=== PATIENT | male | born 1950 | race Caucasian/White ===

== ENCOUNTER 2019-08-01 02:15 | Outpatient (CLI) | payer OTHER, SELFPAY ==
[2019-08-01 09:34] LABS: Calculated LDL 125 mg/dL (<100); Cholesterol 193 mg/dL (<200); HDL Cholesterol 36 mg/dL (40-60); Triglyceride 161 mg/dL (<150)
== END 2019-08-01 02:35 ==
PROVIDERS: PCP Emergency Medicine; Visit Provider Emergency Medicine
DX: E78.5 Hyperlipidemia, unspecified (principal)
CPT/HCPCS: 36415; 80061

== ENCOUNTER 2020-04-11 11:57 | Outpatient (CLI) | payer OTHER, SELFPAY ==
[2020-04-12 16:56] LABS: COVID-19 RT-PCR UVMMC Result Negative (Negative)
== END 2020-04-11 11:58 | disposition home or self-care (01) ==
LOC: LBO 11:57
PROVIDERS: PCP Emergency Medicine; Visit Provider Emergency Medicine
DX: Z20.822 Contact with and (suspected) exposure to COVID-19 (principal)
CPT/HCPCS: U0003

== ENCOUNTER 2020-04-16 03:16 | Outpatient (CLI) | payer OTHER, SELFPAY ==
[2020-04-17 13:15] LABS: COVID-19 RT-PCR UVMMC Result Negative (Negative)
== END 2020-04-16 03:17 | disposition home or self-care (01) ==
LOC: LBO 03:17
PROVIDERS: PCP Emergency Medicine; Visit Provider Emergency Medicine
DX: Z20.822 Contact with and (suspected) exposure to COVID-19 (principal)
CPT/HCPCS: U0003

== ENCOUNTER 2020-11-04 12:19 | Outpatient (REF) | payer OTHER, SELFPAY ==
[2020-11-04 16:22] LABS: Anion Gap 9.5 mmol/L (3-11); BUN 34 mg/dL (7-18); CO2 25.5 mmol/L (21.0-32.0); CREATININE 1.6 mg/dL (0.70-1.30); Chloride 103 mmol/L (98-107); Estimated GFR 43.07 (mL/min/1.73m2); Glucose 103 mg/dL (74-106); Potassium 4.6 mmol/L (3.5-5.1); Sodium 138 mmol/L (136-145)
[2020-11-04 23:17] LABS: PSA, Screening 1.1 ng/mL (0.0-4.5)
== END 2020-11-04 12:20 | disposition home or self-care (01) ==
LOC: NCHCN 12:19
PROVIDERS: PCP Emergency Medicine; Visit Provider Emergency Medicine
DX: I10 Essential (primary) hypertension (principal); Z12.5 Encounter for screening for malignant neoplasm of prostate
CPT/HCPCS: 80048; 84153

== ENCOUNTER 2020-12-03 04:28 | Outpatient (CLI) | payer OTHER, SELFPAY ==
[2020-12-03 13:02] LABS: Anion Gap 10.6 mmol/L (3-11); BUN 43 mg/dL (7-18); CO2 26.4 mmol/L (21.0-32.0); CREATININE 1.9 mg/dL (0.70-1.30); Calcium 9.2 mg/dL (8.5-10.1); Chloride 105 mmol/L (98-107); Estimated GFR 35.32 (mL/min/1.73m2); Glucose 101 mg/dL (74-106); Potassium 4.9 mmol/L (3.5-5.1); Sodium 142 mmol/L (136-145)
== END 2020-12-03 04:29 | disposition home or self-care (01) ==
LOC: LOS 04:29
PROVIDERS: PCP Emergency Medicine; Visit Provider Emergency Medicine
DX: I10 Essential (primary) hypertension (principal)
CPT/HCPCS: 36415; 80048

== ENCOUNTER 2021-01-07 02:34 | Outpatient (CLI) | payer OTHER, SELFPAY ==
[2021-01-07 13:32] LABS: Anion Gap 7.7 mmol/L (3-11); BUN 34 mg/dL (7-18); CO2 27.3 mmol/L (21.0-32.0); CREATININE 1.6 mg/dL (0.70-1.30); Chloride 104 mmol/L (98-107); Estimated GFR 43.07 (mL/min/1.73m2); Glucose 93 mg/dL (74-106); Potassium 4.7 mmol/L (3.5-5.1); Sodium 139 mmol/L (136-145)
[2021-01-07 16:15] LABS: Bilirubin Negative (Negative); Blood Negative (Negative); Clarity Clear (Clear); Glucose Negative (Negative); Ketones Negative (Negative); Leukocyte Esterase Negative (Negative); Nitrite Negative (Negative); Specific Gravity >= 1.030 (1.005-1.025); Urobilinogen 0.2 EU/dL (Up TO 0.2); pH 5.5 (5-8)
[2021-01-07 16:32] LABS: COMMENT (LAB VIEW ONLY) 185.15 mg/dL; Microalb ug/mg Crea 3.2 ug/mg Cr
== END 2021-01-07 02:35 | disposition home or self-care (01) ==
LOC: LBO 02:34
PROVIDERS: PCP Emergency Medicine; Visit Provider Emergency Medicine
DX: I10 Essential (primary) hypertension; N28.9 Disorder of kidney and ureter, unspecified; R30.0 Dysuria
CPT/HCPCS: 36415; 80048; 81003; 82043; 82570; 86140

== ENCOUNTER 2021-04-23 21:07 | Outpatient (CLI) | payer BC, SELFPAY ==
--- NOTE | 2021-04-23 15:15 | DI.RAD_ITS ---
Exam(s) XR LUMBAR SPINE COMPLETE EXAM: XR LUMBAR SPINE COMPLETE CLINICAL HISTORY: right sciatica, M54.31; lt hip pain, M25.552. TECHNIQUE: 2D digital imaging was performed. COMPARISON: No exams were available for comparison FINDINGS: Five views No evidence of fracture, listhesis, or pars defects. Preserved disc space height in the lumbar spine with the exception of mild disc space narrowing at L1-2 level. There are bridging left-sided osteop hytes at L2-3 level. Smaller right-sided osteophytes at L3-4 level. There is no scoliosis. No omin ous osseous lesions. Sacroiliac joints appear unremarkable. Minimal facet joint degenerative change s. IMPRESSION: Some degenerative changes as above. DATA REPOSITORY: RADIATION DOSE DELIVERED:
== END 2021-04-23 21:27 ==
PROVIDERS: PCP Family Medicine; Visit Provider Emergency Medicine
DX: M25.552 Pain in left hip (principal); M54.31 Sciatica, right side; M25.78 Osteophyte, vertebrae; M48.061 Spinal stenosis, lumbar region without neurogenic claudication
CPT/HCPCS: 72110

== ENCOUNTER 2021-08-27 01:08 | Outpatient (CLI) | payer BC, SELFPAY ==
--- OUTSIDE RECORDS SUMMARY | 2021-08-27 01:09 | XMS_ITS | Encounter Summary ---
:1950 [place] [address] Care Team Providers Name Role Phone Anmol Sigala DO Primary Care Provider Reason for Visit Reason Comments Skin Lesion Consultation (Routine) - Closed Specialty Diagnoses / Procedures Referred By Contact Refer red To Contact Dermatology Diagnoses EYELID LESION Anmol Sigala DO [facility] Dermatology [address] [place], [place] [address] [address] [place] [address] Fax: Referral ID Status Reason Start Date Expiration Date Visits V isits Requested Authorized [id number] Closed Consult, 07/20/2017 07/20/2018 1 [facility] Encounter Details Date Type Department Care Team Description 09/20/2017 Office Visit Dermatology at [facility] Piyush Santos MD Seborrheic keratosis; [facility] Eczema, unspecified type [address] [place] [address] [facility] [phone] RD-DERMATOLOGY [place], [place] [address] Social History Tobacco Use Types Packs/Day Years Used Date Never Smoker Smokeless Tobacco: Never Used Sex Assigned at Date Recorded Not on file documented as of this encounter Progress Notes Piyush Santos - 09/20/2017 10:00 AM EDT Images from the original note were not included. DERMATOLOGY - NEW PATIENT NOTE Date of service: 09/20/2017 Kristian Mark : 1950, 67 y.o. Chief Complaint: Chief Complaint Patient presents with ??? Skin Lesion HPI: Kristian Mark is a 67 y.o. male referred by Anmol Sigala with the following concerns: C/o a lesion on his left lower eyelid x several years, asymptomatic. States it bothers him as it is in his line of vision. 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 C/o some roughness on his hands, states he noticed they worsened when he added salt to his water as he has hard water. Relevant Skin History: - Okay to leave detailed message with results? 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 clonAZEpam (KLONOPIN) 0.5 mg tablet 0.5MG, PO, Once daily ??? atorvastatin (LIPITOR) 20 mg tablet 10mg, PO, Once daily ??? omeprazole (PRILOSEC) 20 mg capsule No current facility-administered medications for this visit. Allergies: Allergies Allergen Reactions ??? Esomeprazole Magnesium CIS - diarrhea Review of Systems: - General: Feels well. - Skin: No other skin concerns. Examination: - Constitutional: Patient was alert, well-appearing and in no noticeable distress. - Skin: A focused skin exam was performed including the face, hands Diagnosis/Skin findings/Assessment/Plan: 1. Suspect Irritant contact dermatitis; mild scale on b/l hands, most prominent on MCP and PIP. Scaly erythematous plaques - Recommend sensitive skin care: Dove fragrance free bar soap (folds/feet only), Cerave cream/Vanicream/Aveeno daily moisturizer within a few minutes of getting out of shower, lukewarm showers 2. Seborrheic keratosis vs. Verruca Vulgaris ; Left lower eyelid aprox. 0.2 cm papillomatous friablePapule. Joint decision to pursue snip removal at this time Procedure: Skin biopsy using scissors. Site: left lower eyelid Discussed procedure and expectations including risks and benefits. Verbal consent obtained. Sterile skin prep performed. Local anesthesia with 1% xylocaine, 1/100,000 epinephrine, The lesion was removed by scissors technique to the level of dermis Hemostasis obtained. There were no complications; the p atient tolerated the procedure well. The wound was dressed. Post-procedure expectations (including discomfort management), wound care andactivity restrictions were reviewed. Follow-up based on Pathology results. 3. Seborrheic keratosis: Multiple 0.4-0.6cm brown papules with waxy, stuck-on appearance. Milia-likecysts, comedone-like openings and/or fissuring on dermoscopy. - reassurance RTC: PRN The following photos were obtained with patient consent: Note initiated by CATHRYN RUDD RN. I performed the above scribed service and agree with the accuracy of the documentation in this encounter. Reviewed and signed by Piyush Santos MD Resident in Dermatology [facility] Patient seen in conjunction with staff truck loader: Louis Smyth MD Section of Dermatology [facility] Louis Smyth MD - 09/20/2017 10:00 AM EDT I directly supervised Dr. Santos during this office visit. Dr. Santos presented the history and physicalexam to me. I then saw and examined this patient with Dr. Santos. We reviewed the history and pertinent details and I confirmed the physical findings. I agree with the details of the history and physicalexam as documented in Dr. Santos's note. LOUIS SMYTH MD Staff Physician documented in this encounter Plan of Treatment Not on filedocumented as of this encounter Visit Diagnoses Diagnosis Seborrheic keratosis Other seborrheic keratosis Eczema, unspecified type documented in this encounter Care Teams Leasing Representative Relationship Specialty Start Date End Date Anmol Sigala DO PCP - General Family Medicine 07/20/17 [address] [place] [address] documented as of this encounter
--- OUTSIDE RECORDS SUMMARY | 2021-08-27 01:09 | XMS_ITS | Encounter Summary ---
:1950 Author Organization [facility] Address [address] [place] [address] Care Team Providers Name Role Phone Unavailable Primary Care Provider Unavailable Encounter Details Date Type Department Care Team Description 04/11/2020 Lab Requisition [facility] Outr Resulting Lab, Pathology & Laboratory Provider [facility] [address] [place] [address] Social History Tobacco Use Types Packs/Day Years Used Date Never Assessed Sex Assigned at Date Recorded Not on file documented as of this encounter Plan of Treatment Not on filedocumented as of this encounter Procedures Procedure Name Priority Date/Time Associated Diagnosis Comme nts COVID-19 TEST [facility] Today 04/11/2020 12:55 LAB PCR EST COVID-19 TESTING Routine 04/11/2020 12:55 Results for this EST procedure are i n the results section. documented in this encounter Results COVID-19 TEST [facility] LAB PCR (04/11/2020 12:55 EST) Specimen Swab - Entire nasopharynx (body structur e) Performing Organization Address City/State/ZIP Code Phon e Number [facility] [address] [place] [address] SERVICES COVID-19 TESTING (04/11/2020 12:55 EST) COVID-19 rt-PCR Negative Negative [facility] MEDICAL Result Comment: [facility] This test has not been FDA c leared or approved. This test has been authorized by FDA under an EUA for use by authorized laboratories. This test has been authorized only for detection of nucleic acid fro SERVICES m 2019-nCoV, not for any oth er viruses or pathogens. This test is only authorized for the duration of the declaration that circumstances exist justifying the authorization of emergency use of in vitro d iagnostic tests for detectio n and/or diagnosis of 2019-nCoV under section 564(b)(1) of Act, 21 U.S.C ?? 360bbb-3(b) (1), unless the authorization is terminated or revoked sooner. Negative results do not prec lude 2019-nCoV infection and should not be used as the sole basis for treatment or other patient management decisions. Negative results must be combined with clinical observa tions, patient history, and epidemiological informatio n. This test was developed and its performance characteristics determined by [facility]. It has not been cleared or approved by the US Food and Drug Administration. FDA does not require this test to go through premarket FDA review. This t est is used for clinical purposes. It should not be regarded as investigational or for research. This laboratory is certified under the Clinical Laboratory Improvement Amendm ents (CLIA) as qualified to perform high complexity clinical laboratory testing. This test is based on the CD C COVID-19 Emergency Use Authorization (EUA) assay, with minor modification as defined by the FDA Performed on the [employer] Te[employer] 7 Flex RT-PCR System. Performing Lab [facility] Lab [facility] SERVICES Specimen Swab Performing Organization Address City/State/ZIP Code Phon e Number [facility] [address] [place] [address] SERVICES documented in this encounter Visit Diagnoses Not on filedocumented in this encounter
--- OUTSIDE RECORDS SUMMARY | 2021-08-27 01:09 | XMS_ITS | Clinical Summary ---
:1950 Author Organization [facility] [place] [address] Care Team Providers Name Role Phone JovonAnmol simon Primary Care Provider Allergies Active Allergy Reactions Severity Noted Date Comments Esomeprazole Magnesium Medium CIS - diarrhea Medications Medication Sig Dispensed Refills Start Date End Date Status clonAZEpam (KLONOPIN) 0.5MG, PO, Once 0 03/29/2006 Active 0.5 mg tablet daily atorvastatin (LIPITOR) 10mg, PO, Once 0 03/29/2006 Active 20 mg tablet daily omeprazole (PRILOSEC) 20 0 03/29/2006 Active mg capsule Active Problems No known active problems Encounters Date Type Specialty Care Team Description 08/11/2021 Telephone Nephrology Gris Vanessa 08/05/2021 Orders Only Nephrology Pierre Retana MD VIKY (acute ki dney injury); Stage 3b chroni c kidney disease from Last 3 Months Social History Tobacco Use Types Packs/Day Years Used Date Never Smoker Smokeless Tobacco: Never Used Sex Assigned at Date Recorded Not on file Plan of Treatment Health Maintenance Due Date Last Done Comments Covid-19 Vaccine (#1) 1956 Tdap adult 1970 Tetanus vaccine 1970 Colonoscopy 1996 Zoster vaccine (1 of 2) 2001 Advance Directive 2006 Pneumoccocal Vaccine: 65+ (1 - PCV) 2016 Influenza (Flu) vaccine (1 of 1 - Influenza standard 10/08/2021 series) Hepatitis C Screening Completed 04/22/2021 Insurance Payer Benefit Plan / Subscriber ID Effective Dates Phone Addre ss Type Group BLUE CROSS B[employer]R. [facility] [id number] 2021-Present [address] [facility] [address] [address] (Home) [place] [phone] [place] [phone] (Work) Care Teams Lathmaker Relationship Specialty Start Date End Date Anmol Sigala DO PCP - General Family Medicine 07/20/[address] [place], [place] [address]
--- OUTSIDE RECORDS SUMMARY | 2021-08-27 01:09 | XMS_ITS | Encounter Summary ---
:1950 Author Organization [facility] [place] [address] Care Team Providers Name Role Phone Anmol Sigala DO Primary Care Provider Encounter Details Date Type Department Care Team Description 05/05/2021 Laboratory Appointment Lab 3L [facility] Stage 3b chronic kidney disease; [facility] VIKY (acute kidney injury) [place] [address] Social History Tobacco Use Types Packs/Day Years Used Date Never Smoker Smokeless Tobacco: Never Used Sex Assigned at Date Recorded Not on file documented as of this encounter Plan of Treatment Not on filedocumented as of this encounter Procedures Procedure Name Priority Date/Time Associated Diagnosis Comme [facility] VENIPUNCTURE Routine 05/05/2021 1:15 PM Stage 3b chronic Re sults for this EDT kidney disease procedure are in VIKY (acute kidney the result s injury) section. documented in this encounter Results (ABNORMAL) Basic Metabolic Panel (non-fasting) (05/05/2021 1:15 PM EDT) P athologist Signature Glucose Lvl 107 65 - 199 [facility] mg/dL [facility] Comment: Diabetes: >=200 mg/dL plus symp toms BUN 34 (H) 10 - 20 mg/dL [facility] Creatinine 1.58 (H) 0.80 - 1.50 mg/dL [facility] Sodium 136 135 - 145 mmol/L [facility] Potassium 5.1 (H) 3.5 - 5.0 mmol/L [facility] Comment: Please note: ??Patients with WBC >100,00 0 may have falsely elevated Potassium levels. ??For accurate Potassium quantif ication in these patients send serum separator tube (gold top) for subsequent determinations. ??Contact the Clinical Chemistry Laboratory if there are any qu estions. Chloride 101 98 - 107 mmol/L [facility] CO2 21 (L) 22 - 31 mmol/L [facility] Anion Gap 14 5 - 15 mmol/L [facility] Calcium 10.2 8.5 - 10.5 mg/dL [facility] Estimated GFR 44 (L) >=60 mL/min/1.73 m?? [facility] Comment: This patient? s estimated glomerular filtration rate (eGFR) is between 44 mL/min/1.73 m2 (patients with less muscl e mass per kg body weight) and 51 mL/min/1.73 m2 (patients with more muscl e mass per kg body weight) as determined by the CKD-EPI equation. Asse ssment of eGFR is not appropriate when creatinine concentrations are rapidly ch anging. For clinical decisions where creatinine clearance will affect therapy , a 24-hour urine creatinine clearance may be advised. Assignment of CKD stage 1 - 5 for patien ts with an eGFR near the transition point between stages may be based on cli nical assessment of muscle mass and symptoms in addition to eGFR. Specimen Anatomical Collection Method Collection Time Receive d Time (Source) Location / / Volume Laterality Blood 05/05/2021 1:15 PM 2 1:27 EDT PM EDT Resulting Agency Comment Spec In Lab Pierre Retana MD CHEMISTRY ORDERABLES Performing Organization Address City/State/[place] [address] documented in this encounter Visit Diagnoses Diagnosis Stage 3b chronic kidney disease VIKY (acute kidney injury) Acute kidney failure, unspecified documented in this encounter Care Teams Guinea Pig Breeder Relationship Specialty Start Date End Date Anmol Sigala DO PCP - General Family Medicine 07/20/[address] [place] [address] documented as of this encounter
--- OUTSIDE RECORDS SUMMARY | 2021-08-27 01:09 | XMS_ITS | Encounter Summary ---
:1950 Author Organization [facility] Address [address] [place] [address] Care Team Providers Name Role Phone Unavailable Primary Care Provider Unavailable Encounter Details Date Type Department Care Team Description 04/16/2020 Lab Requisition [facility] Outr Resulting Lab, Pathology & Laboratory Provider [facility] [address] [place] [address] Social History Tobacco Use Types Packs/Day Years Used Date Never Assessed Sex Assigned at Date Recorded Not on file documented as of this encounter Plan of Treatment Not on filedocumented as of this encounter Procedures Procedure Name Priority Date/Time Associated Diagnosis Comme nts [facility] Today 04/16/2020 8:46 EST LAB PCR COVID-19 TESTING Routine 04/16/2020 8:46 EST Resu lts for this procedure are i n the results section. documented in this encounter Results COVID-19 TEST [facility] LAB PCR (04/16/2020 8:46 EST) Specimen Swab - Entire nasopharynx (body structur e) Performing Organization Address City/State/ZIP Code Phon e Number [facility] [address] [place] [address] SERVICES COVID-19 TESTING (04/16/2020 8:46 EST) COVID-19 rt-PCR Negative Negative [facility] Result Comment: [facility] This [...] developed and its performance characteristics determined by [facility]. It has not been cleared [...] defined by the FDA Performed on the [employer] 7 Flex RT-PCR System. Performing Lab [facility] Lab [facility] SERVICES Specimen Swab Performing Organization Address City/State/ZIP Code Phon e Number [facility] [address] [place] [address] SERVICES documented in this encounter Visit Diagnoses Not on filedocumented in this encounter
--- OUTSIDE RECORDS SUMMARY | 2021-08-27 01:09 | XMS_ITS | Encounter Summary ---
:1950 Author Organization [facility] [place] [address] Care Team Providers Name Role Phone Anmol Sigala DO Primary Care Provider Encounter Details Date Type Department Care Team Description 01/27/2021 Ancillary Procedure Radiology Library at Anmol Pollock DO [facility] [address] [phone] (Wo rk) [phone] Social History Tobacco Use Types Packs/Day Years Used Date Never Smoker Smokeless Tobacco: Never Used Sex Assigned at Date Recorded Not on file documented as of this encounter Plan of Treatment Not on filedocumented as of this encounter Procedures Procedure Name Priority Date/Time Associated Comments Diagnosis FILM LIBRARY STORAGE Routine 01/27/2021 12:00 AM Results for this ONLY ULTRASOUND EST procedure ar e in STUDY the results section. documented in this encounter Results Film Library- Storage Only Ultrasound Study (01/27/2021 12:00 AM EST) Specimen (Source) Anatomical Location Collection Method / Collectio n Time Received Time / Laterality Volume Narrative MARU - 01/29/2021 4:23 PM EST This exam is auto-finalizing. It's purpo se is for storage only. Anmol Sigala DO [facility] FILM LIBRARY ORDERABLES Performing Organization Address City/State/ZIP Code Phon e Number [place], [place] documented in this encounter Visit Diagnoses Not on filedocumented in this encounter Care Teams Construction Job Titles Relationship Specialty Start Date End Date Anmol Sigala DO PCP - General Family Medicine 07/20/[address] [place] [address] documented as of this encounter
--- OUTSIDE RECORDS SUMMARY | 2021-08-27 01:09 | XMS_ITS | Encounter Summary ---
:1950 Author Organization [facility] [place] [address] Care Team Providers Name Role Phone Anmol Sigala DO Primary Care Provider Encounter Details Date Type Department Care Team Description 08/11/2021 Telephone Nephrology Hypertens ion at [facility] [place] [address] Social History Tobacco Use Types Packs/Day Years Used Date Never Smoker Smokeless Tobacco: Never Used Sex Assigned at Date Recorded Not on file documented as of this encounter Miscellaneous Notes Telephone Encounter - Gris Vanessa - 08/11/2021 11:40 AM EDT L/M for pt to call and agustina. Apt. With Dr. Retana as soon as possible. documented in this encounter Plan of Treatment Not on filedocumented as of this encounter Visit Diagnoses Not on filedocumented in this encounter Care Teams Instructor Knitting Relationship Specialty Start Date End Date Anmol Sigala DO PCP - General Family Medicine 07/20/[address] [place], [place] [address] documented as of this encounter
--- OUTSIDE RECORDS SUMMARY | 2021-08-27 01:09 | XMS_ITS | Encounter Summary ---
:1950 Author Organization [facility] Address [address] [place] [address] Care Team Providers Name Role Phone Unavailable Primary Care Provider Unavailable Encounter Details Date Type Department Care Team Description 11/04/2020 Lab Requisition [facility] Outr Resulting Lab, Pathology & Laboratory Provider [facility] [address] [place] [address] Social History Tobacco Use Types Packs/Day Years Used Date Never Assessed Sex Assigned at Date Recorded Not on file documented as of this encounter Plan of Treatment Not on filedocumented as of this encounter Procedures Procedure Name Priority Date/Time Associated Comments Diagnosis PSA TOTAL, Routine 11/04/2020 9:25 EDT Results for this DIAGNOSTIC procedure are i n the results section. documented in this encounter Results PSA TOTAL, DIAGNOSTIC (11/04/2020 9:25 EDT) Pathologist Sig nature PSA 1.1 0.0 - 4.5 ng/mL [facility] Specimen Blood - Venous blood (substance) Narrative [facility] - 11/04/2020 23:06 EDT NOTE: Serum PSA concentration should not be in terpreted as absolute evidence for the presence or absence of malignant disease. Assayed on Siemens ADVIA Centaur XPT usi ng chemiluminescent technology.??Values obtained by using different assay methods cannot be used interchangeably. Performing Organization Address City/State/ZIP Code Phon e Number [facility] [address] [place] [address] SERVICES documented in this encounter Visit Diagnoses Not on filedocumented in this encounter
--- OUTSIDE RECORDS SUMMARY | 2021-08-27 01:09 | XMS_ITS | Encounter Summary ---
:1950 Author Organization [facility] [place] [address] Care Team Providers Name Role Phone Anmol Sigala DO Primary Care Provider Encounter Details Date Type Department Care Team Description 08/05/2021 Orders Only Nephrology Hypertension Jamee Retana MD VIKY (acute kidney injury); at [facility] Stage 3b chronic kidney dise [facility] [address] [place] [address] [place] [address] [phone] Social History Tobacco Use Types Packs/Day Years Used Date Never Smoker Smokeless Tobacco: Never Used Sex Assigned at Date Recorded Not on file documented as of this encounter Plan of Treatment Scheduled Orders Name Type Priority Associated Diagnoses Order S chedule Basic Metabolic Panel Lab Routine VIKY (acute kidney injury) Expected: 08/05/2021 (non-fasting) Stage 3b chronic kidney (Ap proximate), disease Expires: 2022 Albumin Level Lab Routine VIKY (acute kidne y injury) Expected: 08/05/2021 Stage 3b chronic kidney (Rosy roximate), disease Expires: 2022 CBC (with Diff) Lab Routine VIKY (acute kidne y injury) Expected: 08/05/2021 Stage 3b chronic kidney (Rosy roximate), disease Expires: 2022 documented as of this encounter Visit Diagnoses Diagnosis VIKY (acute kidney injury) Acute kidney failure, unspecified Stage 3b chronic kidney disease documented in this encounter Care Teams Carpet Repairer Relationship Specialty Start Date End Date Anmol Sigala DO PCP - General Family Medicine 07/20/[address] [place] [address] [address] [place] [address] documented as of this encounter
--- OUTSIDE RECORDS SUMMARY | 2021-08-27 01:09 | XMS_ITS | Encounter Summary ---
:1950 Author Organization [facility] [address] Care Team Providers Name Role Phone Anmol Sigala DO Primary Care Provider Reason for Visit Consultation (Routine) - Authorized Specialty Diagnoses / Procedures Referred By Contact Refer red To Contact Nephrology Diagnoses Disorder of kidney and ureter, unspecified Anmol Sigala DO [facility] Nephrology [address]m [address] [place] [facility] [address] [place] [id number] [place], [place] [address] Referral ID Status Reason Start Expiration Visits Visits Date Date Requested Authorized [id number] Authorized Consult, 01/29/2022 6 6 Test & Treat 1 [facility] PCP Updated and/or Approved Encounter Details Date Type Department Care Team Description 04/22/2021 Office Visit Nephrology Hypertension Jamee Retana MD Stage 3b chronic kidney disease; at [facility] (acute kidney injury) [facility] [address] [place] [address] [place] [address] [phone] Social History Tobacco Use Types Packs/Day Years Used Date Never Smoker Smokeless Tobacco: Never Used Sex Assigned at Date Recorded Not on file documented as of this encounter Progress Notes Pierre Retana MD - 04/22/2021 1:00 PM EDT HYPERTENSION/ NEPHROLOGY CONSULT NOTE PATIENT: Kristian Mark : 1950 REASON FOR CONSULTATION: Consulted for renal insufficiency HPI: 71 y.o. male with PMHx significant for Hypertension, hyperlipidemia, diastases recti, anxiety, referred by his primary care provider for renal insufficiency. His creatinine on 12/03/20 1.9 01/07/2021 was 1.6. Negative protein on urinalysis 01/07/2021 USG 01/27/21- R 11 cm L 10 cm no hydronephrosis. His medications include: Lisinopril 20 mg daily Hydrochlorothiazide 25 mg Amlodipine 5 mg daily Has been using NSAIDS 2 tabs bid for about a month for pain No other complaints including urinary comlaints no diarrhea, no constipation, no nocturia, no dysuria, no decreased stream. No fever chills, had a rash upper left thigh which resolved with topical steroid. PMHx Hypertension, Hyperlipidemia, Diastases recti, Anxiety, Family history Mother at 94 Father at 78 . He had diabetes heart disease hyperlipidemia Social history Never smoker Rarely drinks alcohol Review of system- A 10 point review of system including cardiovascular, neurological, pulmonary, gastrointestinal was done, everything was negative except for what was mentioned above. Social History Socioeconomic History ??? Marital status: Spouse name: Not on file ??? Number of children: Not on file ??? Years of education: Not on file ??? Highest education level: Not on file Occupational History ??? Not on file Tobacco Use ??? Smoking status: Never Smoker ??? Smokeless tobacco: Never Used Substance and Sexual Activity ??? Alcohol use: Not on file ??? Drug use: Not on file ??? Sexual activity: Not on file Other Topics Concern ??? Not on file Social History Narrative ??? Not on file Social Determinants of Health Financial Resource Strain: Not on file Food Insecurity: Not on file Transportation Needs: Not on file Physical Activity: Not on file Housing Stability: Not on file Outpatient medications: Current Outpatient Medications on File Prior to Visit Medication Sig Dispense Refill ??? clonAZEpam (KLONOPIN) 0.5 mg tablet 0.5MG, PO, Once daily ??? atorvastatin (LIPITOR) 20 mg tablet 10mg, PO, Once daily ??? omeprazole (PRILOSEC) 20 mg capsule No current facility-administered medications on file prior to visit. MEDICATIONS: Allergies Allergen Reactions ??? Esomeprazole Magnesium CIS - diarrhea PHYSICAL EXAM: Last value Range last 24 hrs Temperature Temp: -- Heart Rate Heart Rate: -- Blood Pressure BP: ()/() Respiratory Rate Resp: -- SpO2 SpO2: -- BP 125/67 HR 80/' Patient is awake alert did not seem to be in acute distress No jaundice oral mucosa moist Neck- supple trachea central Chest- bilateral air entry present clear to auscultation no wheeze no crepitation CVS-S1-S2 present, no murmur regurgitation gallops. Abdomen-nontender nondistended, bowel sounds present. Extremities-peripheral pulses present, no edema Neuro-patient is awake alert, moving all 4 limbs, motor examination is grossly normal. no asterixis. STUDIES: Labs: CBC: Recent Labs 04/22/21 1439 WBC 4.9 HGB 12.7* PLATELET 258 Chemistry: Recent Labs 04/22/21 1439 NA 136 K 4.4 CL 103 CO2 21* BUN 40* CREATININE 1.92* GLUCOSE 121 Recent Labs 04/22/21 1439 CALCIUM 9.7 LFT's: Recent Labs 04/22/21 1439 ALBUMIN 4.5 Prot/Cre Ratio Date Value Ref Range Status 04/22/2021 0.1 ratio Final Lab Results Component Value Date TPROTEINPEP 7.1 04/22/2021 Lab Results Component Value Date MICROALBUR 19.5 04/22/2021 No results found for: HA1C Lab Results Component Value Date PTH 29 04/22/2021 CALCIUM 9.7 04/22/2021 25-OH Vit D Total (ng/mL) Date Value Status 04/22/2021 20 (L) Final IMPRESSION/ RECOMMENDATIONS: 71 y.o. male with PMHx significant for Hypertension, hyperlipidemia, diastases recti, anxiety, referred by his primary care provider for renal insufficiency. 12/03/20 1.9 01/07/2021 was 1.6. Negative protein on urinalysis 01/07/2021 USG 01/27/21- R 11 cm L 10 cm no hydronephrosis. Pocus- pre void 30 ml. Urine - has RTE cell casts and multiple RTE cells C3,C4 CRP, Hep C neg. UPC 0. No albuminuria # VIKY on CKD- - CKD baseline levels not fully established. - RTE cast shows VIKY / ATN most probably from NSAIDs - Will re evaluate urine and his blood in 2 weeks. # Electorlytes Sodium normal Potassium normal #Acid Base - not in acidosis . # BMM Calcium normal 25 OH Vit D 20 PTH 29 #Hemodynamics -blood pressures #Hemoglobin - At target for his level of CKD Plan/Recommendations: We will re evaluate his PTH and Vit D next visit, since his PTH is well within normal limits I am hesitant to recommend supplementation at this time. Will repeat urine evaluation in the nephrology lab personally and BMP in 2 weeks and determine the need for kidney biopsy at that time. Avoid nephrotoxic medications RTC 6 weeks. Please renally dose all meds. Thanks for letting us participate in the care of this patient. A total of 60 minutes was spent for reviewing chart, [id number] encounter, ordering labs/medication and coordinating care. CC-DO Pierre Vásquez MD 04/22/2021 Hypertension-Nephrology [facility] documented in this encounter Plan of Treatment Not on filedocumented as of this encounter Procedures Procedure Name Priority Date/Time Associated Comments Diagnosis HC PROTEIN, Routine 04/22/2021 2:56 Stage 3b chronic Results for this QUANTITATIVE, URINE PM EDT kidney disease proced ure are in the results section. HC MICROALBUMIN, URINE Routine 04/22/2021 2:56 Stage 3b chroni c Results for this PM EDT kidney disease procedure are in the results section. HC RANDOM URINE PEP Routine 04/22/2021 2:56 Stage 3b chronic R esults for this PM EDT kidney disease procedure are in the results section. HC IMMUNOGLOBULIN FREE Routine 04/22/2021 2:39 Stage 3b chroni c Results for this LIGHT CHAINS, SERUM PM EDT kidney disease proced ure are in the results section. HC C-REACTIVE PROTEIN Routine 04/22/2021 2:39 Stage 3b chronic Results for this PM EDT kidney disease procedure are in the results section. HC PARATHYROID Routine 04/22/2021 2:39 Stage 3b chronic Result s for this HORMONE(PTH INTACT PM EDT kidney disease procedu re are in the results section. HEMOGRAM Routine 04/22/2021 2:39 Stage 3b chronic Results for this PM EDT kidney disease procedure are in the results section. DIFFERENTIAL, AUTOMATED Routine 04/22/2021 2:39 Stage 3b chron ic Results for this PM EDT kidney disease procedure are in the results section. HC HEPATITIS C ANTIBODY Routine 04/22/2021 2:39 Stage 3b chron ic Results for this PM EDT kidney disease procedure are in the results section. HC VITAMIN D TOTAL-25 Routine 04/22/2021 2:39 Stage 3b chronic Results for this HYDROXY PM EDT kidney disease procedure are in the results section. HC CBC,PLT & AUTO DIFF Routine 04/22/2021 2:39 Stage 3b chroni c PM EDT kidney disease HC COMPLEMENT,C3 SERUM Routine 04/22/2021 2:39 Stage 3b chroni c Results for this PM EDT kidney disease procedure are in the results section. 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 HC SERUM PROT. Routine 04/22/2021 2:39 Stage 3b chronic Result s for this ELECTROPHORESIS PM EDT kidney disease procedure are in the results section. HC ALBUMIN, SERUM Routine 04/22/2021 2:39 Stage 3b chronic Res ults for this PM EDT kidney disease procedure are in the results section. HC VENIPUNCTURE Routine 04/22/2021 2:39 Stage 3b chronic Resul ts for this PM EDT kidney disease procedure are in the results section. documented in this encounter Results (ABNORMAL) Basic Metabolic Panel (non-fasting) (05/05/2021 1:15 PM EDT) P athologist Signature Glucose Lvl 107 65 - 199 [facility] mg/dL [facility] Comment: Diabetes: >=200 mg/dL plus symp toms BUN 34 (H) 10 - 20 mg/dL [facility] Creatinine 1.58 (H) 0.80 - 1.50 mg/dL [facility] Sodium 136 135 - 145 mmol/L [facility] Potassium 5.1 (H) 3.5 - 5.0 mmol/L [facility] Comment: Please note: ??Patients with WBC >100,00 0 may have falsely elevated Potassium levels. ??For accurate Potassium quantif ication in these patients send serum separator tube (gold top) for subsequent determinations. ??Contact the Clinical Chemistry Laboratory if there are any qu estions. Chloride 101 98 - 107 mmol/L [facility] CO2 21 (L) 22 - 31 mmol/L [facility] Anion Gap 14 5 - 15 mmol/L [facility] Calcium 10.2 8.5 - 10.5 mg/dL [facility] Estimated GFR 44 (L) >=60 mL/min/1.73 m?? [facility] Comment: This patient? s estimated [...] Organization Address City/State/[place] [address] Protein Electrophoresis, urine, random (04/22/2021 2:56 PM EDT) [facility] Method Time Signature U Protein Ran 8 0 - 12 [facility] mg/dL [facility] U Albumin 56 % total [facility] U Globulin 44 % total [facility] U M Band None [facility] LABORATORY U PEP See Note [facility] LABORATORY Comment: There is no evidence of clonal free ligh t chains in this patient's urine sample. Specimen Anatomical Collection Method Collection Time Receive d Time (Source) Location / / Volume Laterality Urine 04/22/2021 2:56 PM 2 3:08 EDT PM EDT Resulting Agency Comment Spec In Lab Pierre Retana MD URINE ORDERABLES Performing Organization Address City/[facility]/[place] [address] U Albumin/Cre Ratio (04/22/2021 2:56 PM EDT) [facility] Method Time Signature Alb/Cr Ratio, Not Calculated 0 - 29 [facility] Random mcg/mg Cr [facility] Comment: Reference Ranges: <30 mcg/mg: Normal 30-300 mcg/mg: Moderately increased albu minuria.* >300 mcg/mg: Severely increased albuminu aditya. * ACEI or ARB recommended if diabetic; s uggested if BP>130/80 without diabetes ACEI or ARB strongly recommended if di abetic; recommended if BP>130/80 without diabetes Two of three specimens collected within a 3 to 6 month period should be abnormal before considering a patient to have albuminuria. Transient causes: exercise, fever, infection, CHF, marked hyperglycemia or hypertension. Persistent albuminuria indicates CKD and is an independent risk factor for ASCVD. ADA Standards of Medical Care in Diabete s-2016; KDIGO: Kidney International Supplements (2012) 2, 357? 362 U Albumin Conc, Random 19.5 mg/L [facility] U Creatinine 110 mg/dL [facility] Specimen Anatomical Collection Method Collection Time Receive d Time (Source) Location / / Volume Laterality Urine 04/22/2021 2:56 PM 2 3:08 EDT PM EDT Resulting Agency Comment Spec In Lab Pierre Retana MD URINE ORDERABLES Performing Organization Address City/[facility]/[place] [address] Protein/Creatinine Ratio, urine (04/22/2021 2:56 PM EDT) athologist Signature U Creatinine 110 mg/dL [facility] U Protein Ran 8 0 - 12 [facility] mg/dL [facility] Prot/Cre Ratio 0.1 ratio [facility] Specimen Anatomical Collection Method Collection Time Receive d Time (Source) Location / / Volume Laterality Urine 04/22/2021 2:56 PM 2 3:08 EDT PM EDT Resulting Agency Comment Spec In Lab Pierre Retana MD URINE ORDERABLES Performing Organization Address City/State/[place] [address] Differential, Automated (04/22/2021 2:39 PM EDT) athologist Signature Neutrophils % 46.9 % [facility] Neutr Abs (ANC) 2.30 1.70 - [facility] 6.10 [facility] x10(3)/[facility] LABORATORY Lymphocytes % 37.7 % [facility] Lymphocytes Abs 1.8 0.9 - 3.2 [facility] x10(3)/[facility] LABORATORY Monocytes % 12.6 % [facility] Monocyte Abs 0.6 0.3 - 0.9 [facility] x10(3)/[facility] LABORATORY Eosinophils % 2.0 % [facility] Eosinophils Abs 0.1 0.0 - 0.4 [facility] x10(3)/[facility] LABORATORY Basophils % 0.6 % [facility] Basophils Abs 0.0 0.0 - 0.1 [facility] x10(3)/[facility] LABORATORY Immature Gran % 0.20 % [facility] Comment: Immature granulocytes(IG's)percentage an d absolute count will include metamyelocytes, myelocytes, and promyelo cytes. Blood smears from CBCs yielding IG's will be scanned manually for concor dance. If this scan disagrees with the automated IG or if promyelocytes are not ed, a manual differential will be performed. Anna Gran Abs 0.01 0.00 - 0.04 x10(3)/[facility] MAR Y [facility] LABORATORY Specimen Anatomical Collection Method Collection Time Receive d Time (Source) Location / / Volume Laterality Blood 04/22/2021 2:39 PM 2 2:58 EDT PM EDT Resulting Agency Comment Spec In Lab Pierre Retana MD HEMATOLOGY ORDERABLES Performing Organization Address City/State/[place] [address] (ABNORMAL) Hemogram (04/22/2021 2:39 PM EDT) Analysis Performed At Patho logist Time Signature WBC 4.9 4.0 - 9.5 [facility] x10(3)/[facility] LABORATORY RBC 3.91 (L) 4.58 - [facility] 5.54 [facility] x10(6)/[facility] LABORATORY Hemoglobin 12.7 (L) 13.7 - [facility] g/dL [facility] Hematocrit 34.6 (L) 40.5 - [facility] 48.5 % [facility] MCV 88.5 82.9 - [facility] 93.1 [facility] LABORATORY MCH 32.5 (H) 27.5 - [facility] 32.1 pg [facility] MCHC 36.7 (H) 32.0 - [facility] 35.7 g/dL [facility] Platelets 258 145 - 357 [facility] x10(3)/[facility] LABORATORY RDWSD 40.6 36.0 - [facility] 45.0 [facility] LABORATORY RDWCV 12.5 11.4 - [facility] 13.8 % [facility] MPV 9.2 7.6 - 12.9 [facility] LABORATORY nRBC % Auto 0.0 % [facility] nRBC Abs Auto 0.000 0.000 - [facility] 0.000 [facility] x10(3)/[facility] LABORATORY Specimen Anatomical Collection Method Collection Time Receive d Time (Source) Location / / Volume Laterality Blood 04/22/2021 2:39 PM 2 2:58 EDT PM EDT Resulting Agency Comment Spec In Lab Pierre Retana MD HEMATOLOGY ORDERABLES Performing Organization Address City/[facility]/ZIP Code Phon e Number [address] C4 Complement (04/22/2021 2:39 PM EDT) athologist Signature C4 Complement 26 10 - 40 [facility] mg/dL [facility] Specimen Anatomical Collection Method Collection Time Receive d Time (Source) Location / / Volume Laterality Blood 04/22/2021 2:39 PM 2 2:58 EDT PM EDT Resulting Agency Comment Spec In Lab Pierre Retana MD CHEMISTRY ORDERABLES Performing Organization Address City/[facility]/ZIP Code Phon e Number [address] C3 Complement (04/22/2021 2:39 PM EDT) athologist Signature C3 Complement 143 90 - 180 [facility] mg/dL [facility] Specimen Anatomical Collection Method Collection Time Receive d Time (Source) Location / / Volume Laterality Blood 04/22/2021 2:39 PM 2 2:58 EDT PM EDT Resulting Agency Comment Spec In Lab Pierre Retana MD CHEMISTRY ORDERABLES Performing Organization Address City/[facility]/[place] [address] CRP, acute inflammation (04/22/2021 2:39 PM EDT) athologist Signature CRP <3.0 <=4.9 mg/L [facility] Specimen Anatomical Collection Method Collection Time Receive d Time (Source) Location / / Volume Laterality Blood 04/22/2021 2:39 PM 2 2:58 EDT PM EDT Resulting Agency Comment Spec In Lab Pierre Retana MD CHEMISTRY ORDERABLES Performing Organization Address City/[facility]/ZIP [facility] [place] [address] (ABNORMAL) Vitamin D, 25-Hydroxy (04/22/2021 2:39 PM EDT) [facility] Method Time Signature 25-OH Vit D 20 (L) 21 - 100 [facility] Total ng/mL [facility] 25-OH Vit D Deficient [facility] LABORATORY Specimen Anatomical Collection Method Collection Time Receive d Time (Source) Location / / Volume Laterality Blood 04/22/2021 2:39 PM 2 2:58 EDT PM EDT Resulting Agency Comment Spec In Lab Pierre Retana MD CHEMISTRY ORDERABLES Performing Organization Address City/[facility]/ZIP Code Phon e Number [address] Protein Electrophoresis, serum (04/22/2021 2:39 PM EDT) [facility] Method Time Signature Total Prot 7.1 6.1 - 8.0 YASMINE Elec g/dL [facility] LABORATORY Albumin Elect 4.80 3.60 - 6.00 YASMINE g/dL [facility] Alpha1-Globul 0.16 0.10 - 0.30 YASMINE in g/dL [facility] LAB[facility] Alpha2-Globul 0.75 0.40 - 0.90 YASMINE in g/dL [facility]ORY Beta Globulin 0.73 0.50 - 1.00 [place]INE g/dL [facility] Gamma 0.67 0.50 - 1.30 Y[place]INE Globulin g/dL [facility] LABORATORY M1 Band None None YASMINE Detected Detected [facility]OR[facility]ORY Specimen Anatomical Collection Method Collection Time Receive d Time (Source) Location / / Volume Laterality Blood 04/22/2021 2:39 PM 2 2:58 EDT PM EDT Resulting Agency Comment Spec In Lab Pierre Retana MD CHEMISTRY ORDERABLES Performing Organization Address City/[facility]/ZIP Code Phon e Number [address] (ABNORMAL) Free Light Chains, Serum (04/22/2021 2:39 PM EDT) Analysis Performed At [facility] logist Time Signature Ray Free 3.50 (H) 0.72 - [facility] MARTHA Light Chain 2.75 mg/dL [facility] Lambda Free 2.24 (H) 0.57 - [facility] Light Chain 2.15 mg/dL [facility] Ray Lambda 1.5625 0.4000 - [facility] FLC Ratio 2.5800 [facility] Specimen Anatomical Collection Method Collection Time Receive d Time (Source) Location / / Volume Laterality Blood 04/22/2021 2:39 PM 2 2:58 EDT PM EDT Resulting Agency Comment Spec In Lab Pierre Retana MD CHEMISTRY ORDERABLES Performing Organization Address City/[facility]/[place] [address] Hepatitis C Antibody (04/22/2021 2:39 PM EDT) Analysis Performed At Patho logist Time Signature Hepatitis C Ab Negative Negative [facility] Specimen Anatomical Collection Method Collection Time Receive d Time (Source) Location / / Volume Laterality Blood 04/22/2021 2:39 PM 2 2:58 EDT PM EDT Resulting Agency Comment Spec In Lab Pierre Retana MD IMMUNOLOGY ORDERABLES Performing Organization Address City/[facility]/[place] [address] PTH (04/22/2021 2:39 PM EDT) P athologist Signature PTH 29 15 - 65 [facility] pg/mL [facility] Specimen Anatomical Collection Method Collection Time Receive d Time (Source) Location / / Volume Laterality Blood 04/22/2021 2:39 PM 2 2:58 EDT PM EDT Resulting Agency Comment Spec In Lab Pierre Retana MD CHEMISTRY ORDERABLES Performing Organization Address City/[facility]/[place] [address] Albumin Level (04/22/2021 2:39 PM EDT) P athologist Signature Albumin 4.5 3.2 - 5.2 YASMINE MARTHA g/dL [facility] Specimen Anatomical Collection Method Collection Time Receive d Time (Source) Location / / Volume Laterality Blood 04/22/2021 2:39 PM 2 2:58 EDT PM EDT Resulting Agency Comment Spec In Lab Pierre Retana MD CHEMISTRY ORDERABLES Performing Organization Address City/State/[place] [address] (ABNORMAL) Basic Metabolic Panel (non-fasting) (04/22/2021 2:39 PM EDT) P athologist Signature Glucose Lvl 121 65 - 199 [facility] mg/dL [facility] Comment: Diabetes: >=200 mg/dL plus symp toms BUN 40 (H) 10 - 20 mg/dL [facility] Creatinine 1.92 (H) 0.80 - 1.50 mg/dL [facility] Sodium 136 135 - 145 mmol/L [facility] Potassium 4.4 3.5 - 5.0 mmol/L [facility] Comment: Please note: ??Patients with WBC >100,00 0 may have falsely elevated Potassium levels. ??For accurate Potassium quantif ication in these patients send serum separator tube (gold top) for subsequent determinations. ??Contact the Clinical Chemistry Laboratory if there are any qu estions. Chloride 103 98 - 107 mmol/L [facility] CO2 21 (L) 22 - 31 mmol/L [facility] Anion Gap 12 5 - 15 mmol/L [facility] Calcium 9.7 8.5 - 10.5 mg/dL [facility] Estimated GFR 35 (L) >=60 mL/min/1.73 m?? [facility] Comment: This patient? s estimated glomerular filtration rate (eGFR) is between 35 mL/min/1.73 m2 (patients with less muscl e mass per kg body weight) and 40 mL/min/1.73 m2 (patients with more muscl e [...] (Source) Location / / Volume Laterality Blood 04/22/2021 2:39 PM 2 2:58 EDT PM EDT Resulting Agency Comment Spec In Lab Pierre Retana MD CHEMISTRY ORDERABLES Performing Organization Address City/State/[place] [address] documented in this encounter Visit Diagnoses Diagnosis Stage 3b chronic kidney disease VIKY (acute kidney injury) Acute kidney failure, unspecified documented in this encounter Care Teams Private Eye Relationship Specialty Start Date End Date Anmol Sigala DO PCP - General Family Medicine 07/20/[address] [place] [address] documented as of this encounter
[2021-08-27 12:39] LABS: Bilirubin Negative (Negative); Blood Negative (Negative); Clarity Clear (Clear); Glucose Negative (Negative); Ketones Negative (Negative); Leukocyte Esterase Negative (Negative); Nitrite Negative (Negative); Specific Gravity 1.025 (1.005-1.025); Urobilinogen 0.2 EU/dL (Up TO 0.2); pH 5.5 (5-8)
[2021-08-27 12:49] LABS: ALT 31 U/L (16-63); AST 26 U/L (15-37); Alkaline Phosphatase 50 U/L (46-116); Anion Gap 10.3 mmol/L (3-11); BUN 41 mg/dL (7-18); Bilirubin, Total 0.7 mg/dL (0.2-1.0); CO2 24.7 mmol/L (21.0-32.0); Calcium 9.6 mg/dL (8.5-10.1); Chloride 101 mmol/L (98-107); Glucose 109 mg/dL (74-106); Sodium 136 mmol/L (136-145); Total Protein 7.4 g/dL (6.4-8.2)
[2021-08-27 13:12] LABS: Vitamin D 25 Total 29.6 ng/mL (30-100)
[2021-08-27 22:44] LABS: Parathyroid Hormone,Intact 26 pg/mL (19-88)
[2021-09-01 11:13] LABS: 1,25-Dihydroxyvitamin D 9.2 pg/mL (18-64)
== END 2021-08-27 01:09 | disposition home or self-care (01) ==
LOC: LOS 01:08
PROVIDERS: PCP Family Medicine; Visit Provider Family Medicine
DX: Z00.00 Encounter for general adult medical examination without abnormal findings (principal); I10 Essential (primary) hypertension; R30.0 Dysuria; N28.9 Disorder of kidney and ureter, unspecified; F41.8 Other specified anxiety disorders; N52.9 Male erectile dysfunction, unspecified
CPT/HCPCS: 36415; 80053; 82306; 81003; 82652; 83970

== ENCOUNTER 2022-06-15 02:41 | Outpatient (CLI) | payer MEDICARE, SELFPAY ==
[2022-06-15 12:29] LABS: Abs Immature Grans 0.01 10^3/uL (0.0-0.06); Absolute Basophil Count 0.03 10^3/uL (0.0-0.2); Absolute Eosinophil Count 0.11 10^3/uL (0.0-0.7); Absolute Lymphocyte Count 1.73 10^3/uL (1.2-3.4); Absolute Monocyte Count 0.57 10^3/uL (0.1-0.8); Absolute Neutrophil Count 2.45 10^3/uL (1.2-6.7); Basophils % 0.6; Eosinophils % 2.2; HCT 35.5 % (40.0-50.0); HGB 12.4 g/dL (13.5-17.5); Immature Grans % 0.2; Lymphocytes % 35.3; MCH 31.5 pg (27.0-33.0); MCHC 34.9 % (32.0-36.0); MCV 90 fL (80-95); MPV 9.7 fL (8.0-11.0); Monocytes % 11.6; Neutrophils % 50.1; Platelet Count 254 10^3/uL (130-400); RBC 3.94 10^6/uL (4.36-5.78); RDW 12.5 % (11.8-14.1)
[2022-06-15 12:47] LABS: PROTEIN 11.4 mg/dL (0.0-11.9)
[2022-06-15 13:25] LABS: ALT 31 U/L (16-63); AST 20 U/L (15-37); Albumin 4.2 g/dL (3.4-5.0); Alkaline Phosphatase 63 U/L (46-116); Anion Gap 9.6 mmol/L (3-11); BUN 45 mg/dL (7-18); Bilirubin, Total 0.5 mg/dL (0.2-1.0); CO2 22.4 mmol/L (21.0-32.0); CREATININE 1.9 mg/dL (0.70-1.30); Calcium 9.2 mg/dL (8.5-10.1); Calculated LDL 117 mg/dL (<100); Chloride 107 mmol/L (98-107); Cholesterol 174 mg/dL (<200); Estimated GFR 37.25 (mL/min/1.73m2); Glucose 97 mg/dL (74-106); HDL Cholesterol 37 mg/dL (40-60); Potassium 5.2 mmol/L (3.5-5.1); Sodium 139 mmol/L (136-145); Total Protein 7.6 g/dL (6.4-8.2); Triglyceride 103 mg/dL (<150)
[2022-06-15 23:12] LABS: PSA, Screening 1.2 ng/mL (<=6.5)
[2022-06-15 23:13] LABS: Parathyroid Hormone,Intact 25 pg/mL (19-88)
[2022-06-16 10:10] LABS: HIV-1/2 Ag & Ab Screen Negative (Negative)
[2022-06-16 10:21] LABS: Hepatitis C Ab w Rflx HCV PCR Negative (Negative)
== END 2022-06-15 02:42 | disposition home or self-care (01) ==
LOC: LOS 02:43
PROVIDERS: PCP Family Medicine; Visit Provider Family Medicine
DX: N28.9 Disorder of kidney and ureter, unspecified (principal); E78.00 Pure hypercholesterolemia, unspecified; Z13.6 Encounter for screening for cardiovascular disorders; Z11.59 Encounter for screening for other viral diseases; Z12.5 Encounter for screening for malignant neoplasm of prostate; Z11.4 Encounter for screening for human immunodeficiency virus [HIV]
CPT/HCPCS: 36415; 80053; 80061; 84153; 86803; 87389; 83970; 84156; 85025

== ENCOUNTER 2022-08-30 04:53 | Outpatient (CLI) | payer MEDICARE, SELFPAY ==
[2022-08-30 12:26] LABS: Anion Gap 8.7 mmol/L (3-11); BUN 47 mg/dL (7-18); CO2 24.3 mmol/L (21.0-32.0); CREATININE 2.2 mg/dL (0.70-1.30); Calcium 9.6 mg/dL (8.5-10.1); Chloride 106 mmol/L (98-107); Estimated GFR 31.24 (mL/min/1.73m2); Glucose 100 mg/dL (74-106); Potassium 4.9 mmol/L (3.5-5.1); Sodium 139 mmol/L (136-145)
== END 2022-08-30 04:54 | disposition home or self-care (01) ==
LOC: LOS 04:53
PROVIDERS: PCP Family Medicine; Visit Provider Family Medicine
DX: I10 Essential (primary) hypertension (principal)
CPT/HCPCS: 36415; 80048

== ENCOUNTER 2022-11-09 01:28 | Outpatient (CLI) | payer MEDICARE, SELFPAY ==
[2022-11-09 12:24] LABS: Anion Gap 8.8 mmol/L (3-11); BUN 26 mg/dL (7-18); CO2 26.2 mmol/L (21.0-32.0); CREATININE 1.9 mg/dL (0.70-1.30); Calcium 9.4 mg/dL (8.5-10.1); Chloride 104 mmol/L (98-107); Estimated GFR 37.25 (mL/min/1.73m2); Glucose 108 mg/dL (74-106); Potassium 4.1 mmol/L (3.5-5.1); Sodium 139 mmol/L (136-145)
== END 2022-11-09 01:29 | disposition home or self-care (01) ==
LOC: LOS 01:28
PROVIDERS: PCP Family Medicine; Visit Provider Family Medicine
DX: N18.32 Chronic kidney disease, stage 3b (principal); I10 Essential (primary) hypertension
CPT/HCPCS: 36415; 80048

== ENCOUNTER 2023-06-08 09:08 | Outpatient (CLI) | payer MEDICARE, SELFPAY ==
[2023-06-08 12:16] LABS: HCT 39.7 % (40.0-50.0); HGB 14.1 g/dL (13.5-17.5); MCH 31.8 pg (27.0-33.0); MCHC 35.5 % (32.0-36.0); MCV 90 fL (80-95); MPV 9.7 fL (8.0-11.0); Platelet Count 289 10^3/uL (130-400); RBC 4.43 10^6/uL (4.36-5.78); RDW 13.2 % (11.8-14.1); RDW-SD 43.2 fL; WBC 6.31 10^3/uL (4.4-10.8)
[2023-06-08 12:30] LABS: ALT 30 U/L (16-63); AST 20 U/L (15-37); Albumin 3.8 g/dL (3.4-5.0); Alkaline Phosphatase 69 U/L (46-116); Anion Gap 10.6 mmol/L (3-11); BUN 22 mg/dL (7-18); CO2 26.4 mmol/L (21.0-32.0); CREATININE 1.6 mg/dL (0.70-1.30); Calcium 9.4 mg/dL (8.5-10.1); Chloride 105 mmol/L (98-107); Glucose 102 mg/dL (74-106); Potassium 4.2 mmol/L (3.5-5.1); Sodium 142 mmol/L (136-145); Total Protein 7.4 g/dL (6.4-8.2)
[2023-06-08 12:51] LABS: Vitamin D 25 Total 34.5 ng/mL (30-100)
[2023-06-08 12:58] LABS: Bilirubin, Total 0.4 mg/dL (0.2-1.0)
[2023-06-08 18:24] LABS: Parathyroid Hormone,Intact 25 pg/mL (19-88)
[2023-06-13 13:15] LABS: 1,25-Dihydroxyvitamin D 9.2 pg/mL (18-64)
== END 2023-06-08 09:09 | disposition home or self-care (01) ==
LOC: LOS 09:08
PROVIDERS: PCP Family Medicine; Referring Provider Family Medicine; Visit Provider Family Medicine
DX: N18.32 Chronic kidney disease, stage 3b (principal); Z00.00 Encounter for general adult medical examination without abnormal findings
CPT/HCPCS: 80053; 82306; 85027; 82652; 83735; 83970; 84156

== ENCOUNTER 2023-10-24 04:47 | Outpatient (CLI) | payer MEDICARE, SELFPAY ==
[2023-10-24 12:54] LABS: Vitamin D 25 Total 51.5 ng/mL (30-100)
[2023-10-28 15:07] LABS: 1,25-Dihydroxyvitamin D 21 pg/mL (18-64)
== END 2023-10-24 04:48 | disposition home or self-care (01) ==
LOC: LOS 04:47
PROVIDERS: PCP Family Medicine; Visit Provider Family Medicine
DX: N18.32 Chronic kidney disease, stage 3b (principal)
CPT/HCPCS: 36415; 82306; 82652

== ENCOUNTER 2023-12-07 01:43 | Outpatient (CLI) | payer MEDICARE, SELFPAY ==
[2023-12-07 12:42] LABS: ALT 30 U/L (16-63); AST 27 U/L (15-37); Albumin 3.8 g/dL (3.4-5.0); Alkaline Phosphatase 72 U/L (46-116); Anion Gap 11.4 mmol/L (3-11); BUN 24 mg/dL (7-18); Bilirubin, Total 0.64 mg/dL (0.2-1.0); CO2 26.6 mmol/L (21.0-32.0); CREATININE 1.6 mg/dL (0.70-1.30); Calcium 9.2 mg/dL (8.5-10.1); Calculated LDL 34 mg/dL (<100); Chloride 107 mmol/L (98-107); Cholesterol 101 mg/dL (<200); Glucose 111 mg/dL (74-106); HDL Cholesterol 45 mg/dL (40-60); Potassium 3.9 mmol/L (3.5-5.1); Sodium 145 mmol/L (136-145); Total Protein 7.5 g/dL (6.4-8.2); Triglyceride 110 mg/dL (<150)
== END 2023-12-07 01:44 | disposition home or self-care (01) ==
LOC: LOS 01:43
PROVIDERS: PCP Family Medicine; Visit Provider Family Medicine
DX: Z00.00 Encounter for general adult medical examination without abnormal findings (principal); N18.32 Chronic kidney disease, stage 3b; Z13.6 Encounter for screening for cardiovascular disorders; E78.00 Pure hypercholesterolemia, unspecified
CPT/HCPCS: 36415; 80053; 80061

== ENCOUNTER 2023-12-31 08:21 | Emergency (ER) | payer MEDICARE, SELFPAY ==
[2023-12-31 08:23] VITALS: BP 146/79; PULSE 70; RESP 16; TEMP 36.3; O2SAT 95
--- NOTE | 2023-12-31 08:34 | ED.GENADUL_ITS ---
Discharge Plan Disposition Patient Disposition: Home Condition: Stable Discharge Details Clinical Impression: Injury of left little finger Primary Care Provider: Liliana Whitaker ED Provider: Wilmer Simmons Home Meds and New Rx's Prescriptions: Continued rosuvastatin 40 mg tablet 40 mg PO DAILY Qty: 90 3RF fluoride (sodium) [SF 5000 Plus] 1.1 % cream 1 applic dental DAILY PRN Patient Comments: USE DIRECTED metoprolol succinate 50 mg tablet extended release 24 hr 50 mg PO DAILY Qty: 90 3RF amlodipine 5 mg tablet 5 mg PO DAILY Qty: 90 3RF NewFlora 10 billion cell capsule 100 mmu cells PO DAILY Discharge Instructions Additional Instructions: Your x-ray did not show any broken bones. You likely dislocated and reset the finger yourself. He also likely have a sprain of the finger joint. Use the splint as needed for comfort, if you are not improving in a week follow- up with your primary care provider. HPI General Mode of arrival: ambulatory . Date/Time Provider Initiated Documentation: 12/31/23 08:29 . Limitations to Documentation: no limitations . Information obtained by: patient . History of Present Illness 73 year old M presents to the emergency department with the chief complaint of left pinky injury, described as mild, Quality is described as aching, and is localized to the left and upper extremity. Patient reports no radiation. Patient started experiencing this hour(s) (1) and it has been constant. Rest improves symptom(s), Movement worsens symptoms . Patient notes no other symptoms.. Patient did receive the following treatments prior to arrival, none Related Data Home Medications ?Medication ?Instructions ?Recorded ?Confirmed rosuvastatin 40 mg tablet 40 mg PO DAILY #90 tabs 06/08/23 12/31/23 amlodipine 5 mg tablet 5 mg PO DAILY #90 tabs 12/09/23 12/31/23 fluoride (sodium) 1.1 % dental 1 applic dental DAILY PRN 12/09/23 12/31/23 cream (SF 5000 Plus) metoprolol succinate 50 mg 50 mg PO DAILY #90 tabs 12/09/23 12/31/23 tablet,extended release 24 hr Lactobacillus acidophilus 10 100 mmu cells PO DAILY 12/31/23 12/31/23 billion cell capsule (NewFlora) Previous Rx's ?Medication ?Instructions ?Recorded rosuvastatin 40 mg tablet 40 mg PO DAILY #90 tabs 06/08/23 amlodipine 5 mg tablet 5 mg PO DAILY #90 tabs 12/09/23 metoprolol succinate 50 mg 50 mg PO DAILY #90 tabs 12/09/23 tablet,extended release 24 hr Allergies Allergy/AdvReac Type Severity Reaction Status Date / Time esomeprazole AdvReac Unknown DIARRHEA Unverified 12/31/23 08:29 General Stated Complaint: Orthopedic CANDIDA: 4 Review of Systems All systems reviewed & are unremarkable except as noted in HPI and below Constitutional Constitutional: Denies chills, Denies fever(s) and Denies weakness ENT Ears, Nose, Mouth, and Throat: Denies neck pain Cardiovascular Cardiovascular: Denies chest pain and Denies dyspnea Respiratory Respiratory: Denies cough and Denies dyspnea Gastrointestinal Gastrointestinal: Denies abdominal pain, Denies nausea and Denies vomiting Musculoskeletal Musculoskeletal: Denies neck pain Neurologic Neurologic: Denies weakness Psychiatric Psychiatric: Denies depression Exam Const General: no acute distress Orientation: alert HENMT Head: normal to inspection Ears: external ears normal General nose exam: external nose normal Mouth: moist mucous membranes Eyes General: appearance normal, both eyes and all related structures Neck Neck: normal visual inspection Resp Effort & Inspection: normal respiratory effort and able to speak in complete sentences Cardio Rate: regular rate Skin General skin exam: no rashes or lesions noted Neuro General: patient alert and patient oriented x3 Extrem General: capillary refill normal and no cyanosis Psych Mental Status: mental status grossly normal Course Vital Signs Vital signs: Vital Signs Temperature 36.3 C L 12/31/23 08:23 Pulse 70 12/31/23 08:23 Respiratory Rate 16 12/31/23 08:23 Blood Pressure 146/79 H 12/31/23 08:23 Pulse Oximetry 95 12/31/23 08:23 Temperature 36.3 C L 12/31/23 08:23 Temperature Source Oral 12/31/23 08:23 Pulse 70 12/31/23 08:23 Respiratory Rate 16 12/31/23 08:23 Respiratory Effort Normal 12/31/23 08:31 Blood Pressure 146/79 H 12/31/23 08:23 Blood Pressure Position Sitting 12/31/23 08:23 Pulse Oximetry 95 12/31/23 08:23 Oxygen Delivery Method Room Air 12/31/23 08:23 Oxygen Flow Rate 0 12/31/23 08:23 Pain Level 2 12/31/23 08:30 Comment denies ice or otc relief captain room service 12/31/23 08:23 Medical Decision Making 73-year-old male who comes in with a left pinky injury. He says he was bending down to pear picker his dog and had just noted so he slipped falling backward on his left hand. Denied his head or loss of consciousness. He says that his left pinky was bent to the side and he pulled on it to make it straight again. He denies any headaches, neck pain, back pain, chest or abdomen pain. He has tenderness over the left PIP joint of the pinky, limited range of motion at this joint. He does have intact range of motion of the DIP joint. Also has full range of motion at the MCP joint. He has no tenderness elsewhere in the hand, normal cap refill and pulses. No tenderness in the wrist. I suspect finger sprain/dislocation, will obtain x-rays to evaluate for fracture. X-ray negative, suspect he had a dislocation that he recent himself, will provide a splint to use as needed for comfort. He will follow-up with his PCP if pain continues in a week, return precautions given. He is able to flex at the DIP joint. Doubt significant tendon injury. Differential Diagnosis Differential Diagnosis: Fracture, dislocation, sprain Quality:SDOH Health Related Social Needs: No Data to Display PFSH All Active Problems (Updated 12/31/23 @ 09:16 by Wilmer Simmons MD) Injury of left little finger (Acute) Obesity, Class II, BMI 35-39.9 (Acute) Trigger finger, right middle finger (Acute) Chronic kidney disease (CKD) stage G3b/A1, moderately decreased glomerular filtration rate (GFR) between 30-44 mL/min/1.73 square meter and albuminuria creatinine ratio less than 30 mg/g (Acute) undergoing evaluation at [facility] [place], felt to be ATN, HTN, NSAIDs as cause. Normal PVR, normal PTH, Vit D. Erectile dysfunction (Acute) Anxiety (Chronic) Severe anxietal response to illness; managed with [facility]iary clonazepam. Off clonazepam. Hypertension (Chronic) Hyperlipidemia (Acute) ACC/AHA risk is 27.5% 2023 Medical History (Updated 12/31/23 @ 09:16 by Wilmer Simmons MD) Hilar mass (01/06/89) s/p mediastinoscopy, pathology (thymus bx) negative. Panic attack Hiatal hernia Diverticular disease (08/25/17) Depressive disorder improved with hypnosis Family History (Updated 07/20/19 @ 10:51 by Leoncio Douglas) Mother , 94 Leukemia Father , 78 Diabetes Heart disease Hyperlipidemia Maternal Grandfather , 80 Heart disease Paternal Grandfather No problems noted. Maternal Grandmother , 90 No problems noted. Son No problems noted. 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 Pets and animals: Yes Sexually active: No Do you think of yourself as: straight/heterosexual Current gender identity: male What is your relationship status?: How often do you talk on the phone with friends or family?: twice per week How often do you get together with friends or relatives?: twice per week How often do you attend holiness or sabianist services?: 4 or more times per year Do you belong to any clubs or organized social groups?: no Panel score (0-1 are the most socially isolated patients): 3 What type of physical activity do you participate in: bicycling Duration: 15-30 minutes/day Frequency: 3-4 times per week Lili/Roman Catholic: Anabaptism Special lili needs: No Seatbelt use: always Helmet use: Yes Helmet use: sometimes Drive intox or ride w/intox motorcycle delivery driver: No 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
--- NOTE | 2023-12-31 09:00 | DI.RAD_ITS ---
Exam(s) XR FINGER LT LITTLE EXAM: XR FINGER LT LITTLE CLINICAL HISTORY: pain s/p fall. TECHNIQUE: 2D digital imaging was performed. COMPARISON: No exams were available for comparison FINDINGS: 3 views No evidence of obvious acute fracture or dislocation. Bone density normal. No osseous lesions. How ever, on the lateral view there is a subtle cortical irregularity on the palm are surface of the dist al phalanx proximal aspect. This may represent an avulsion type injury. IMPRESSION: Possible subtle fracture at the base of the distal phalanx seen on the lateral view. Correlation wit h site of tenderness is recommended. DATA REPOSITORY: RADIATION DOSE DELIVERED:
--- NOTE | 2023-12-31 09:07 | DI.VRAD_ITS ---
PROCEDURE INFORMATION: Exam: XR Left Finger(s) Exam date and time: 12/31/2023 8:56 AM Age: 73 years old Clinical indication: Injury or trauma; Fall; Crushing; Left; Injury date: 12/31/23; Injury details: Patient fell on little finger. Patient HX: Patient unable to remove ring, on lateral used tongue depressor to position for lateral. TECHNIQUE: Imaging protocol: Radiologic exam of the left fingers. Views: Minimum 2 views. COMPARISON: No relevant prior studies available. FINDINGS: Bones/joints: No acute fracture or dislocation. Mild degenerative changes in the interphalangeal joints. Soft tissues: Normal. IMPRESSION: No acute findings. Dictated and Authenticated by: Alicia Galvan MD. Ordering:KATHRYN Guillen MD
== END 2023-12-31 09:28 | disposition home or self-care (01) ==
PROVIDERS: Emergency Provider Emergency Medicine; PCP Family Medicine
DX: S63.617A Unspecified sprain of left little finger, initial encounter (principal); W01.198A Fall on same level from slipping, tripping and stumbling with subsequent striking against other object, initial encounter; I10 Essential (primary) hypertension
CPT/HCPCS: 29130; 99283; 73140

== ENCOUNTER 2024-03-04 23:54 | Emergency (ER) | payer MEDICARE, SELFPAY ==
[2024-03-04 23:59] VITALS: BP 185/91; PULSE 76; RESP 22; TEMP 36.8; O2SAT 98
[2024-03-05] VITALS (30 sets, daily range): BP systolic 146–185; BP diastolic 73–91; PULSE 54–81; RESP 16; O2SAT 89–100
--- NOTE | 2024-03-05 00:15 | DI.CT_ITS ---
Exam(s) CT ABDOMEN PELVIS CTA EXAM: CT ABDOMEN PELVIS CTA CLINICAL HISTORY: severe diffuse abd pain, eval mesenteric ischemia. TECHNIQUE: Imaging Protocol: Axial CT angiography was performed with multi-slice acquisition and m ulti-planar and/or 3D reconstructions. CONTRAST MATERIAL: Intravenous: Omnipaque 350 Contrast volume:100mL Oral: No COMPARISON: US US RENAL from 01/27/2021 FINDINGS: ABDOMEN AND PELVIS: Abdomen: Celiac axis/mesenteric arteries: No evidence of occlusion or significant stenosis. Renal Arteries: No evidence of occlusion or significant stenosis. Mild atherosclerotic calcification is seen at the origin of the left renal artery. No significant stenosis is seen. Aorta: No evidence of occlusion or significant stenosis. No aneurysm or dissection. Atherosclerotic calcification is present. Pelvis: Iliac Arteries: No evidence of occlusion or significant stenosis. Mild atherosclerotic calcification s is present. Common Femoral Arteries: No evidence of occlusion or significant stenosis. ABDOMEN: Lung bases: Mild atelectatic changes are seen in the lung bases. Liver: Normal density. No measurable mass. Portal, Superior Mesenteric, and Splenic Veins: Unremarkable. Gallbladder and Biliary Tract: Cholelithiasis is present. No biliary ductal dilatation. Pancreas: Normal density, no abnormal calcifications or inflammatory process. Spleen: Normal. Adrenals: No masses seen. Kidneys: Normal size, contour and axis. No radiodense stones or obstructive uropathy. There is a 3.7 x 3.3 cm heterogeneous mass at the superior pole of the right kidney suspicious for neoplasm. There i s a simple cyst in the superior pole of the left kidney. No follow-up is recommended on the cyst in t he left kidney. Bowel: No obstruction or bowel wall thickening. There are few diverticula seen in the colon without e vidence of acute diverticulitis. There is no evidence of appendicitis. Peritoneal Cavity: No ascites, collection or mesenteric inflammatory response. No free air. Lymph Nodes: Within normal limits. Bones: Within normal limits for the patient's age. Soft Tissues: There are bilateral inguinal hernias, large right and moderate left. PELVIS: Bladder: Symmetric distention, no gross wall thickening. Reproductive Organs: Prostatic calcifications are present. Lymph Nodes: Within normal limits. Bones: Within normal limits. IMPRESSION: 1. No evidence of dissection or aneurysm. The mesenteric arteries are unremarkable. 2. 3.7 x 3.3 cm in heterogeneous mass in the superior pole of the right kidney suspicious for neoplas m. 3. Unremarkable bowel except for evidence of diverticulosis but no evidence of acute diverticulitis. No findings to suggest bowel ischemia. 4. Bilateral fat inguinal hernias, right greater than left. 5. Cholelithiasis without evidence of biliary ductal dilatation. RADIATION DOSE DELIVERED: 822.54mGy.cm Total DLP DATA REPOSITORY: All CT scans at this facility are submitted to the National Radiology Data Registry (NRDR) Dose Index Registry (DIR) with the [employer] (ACR). RADIATION OPTIMIZATION: All CT scans at this facility use at least one of these dose optimization te chniques: automated exposure control; mA and/or kV adjustment per patient size (includes targeted exa ms where dose is matched to clinical indication); or iterative reconstruction.
--- NOTE | 2024-03-05 00:39 | W.ED.GENAD ---
Discharge Plan Disposition Patient Disposition: Home Condition: Good Discharge Details Clinical Impression: Abdominal cramping, Nausea Primary Care Provider: Liliana Whitaker ED Provider: Mackenzie Chand Home Meds and New Rx's Prescriptions: New ondansetron HCl 4 mg tablet 4 mg PO Q8H PRNQty: 7 0RF dicyclomine 20 mg tablet 20 mg PO TID PRNQty: 10 0RF Continued rosuvastatin 40 mg tablet 40 mg PO DAILY Qty: 90 3RF fluoride (sodium) [SF 5000 Plus] 1.1 % cream 1 applic dental DAILY PRN Patient Comments: USE DIRECTED metoprolol succinate 50 mg tablet extended release 24 hr 50 mg PO DAILY Qty: 90 3RF amlodipine 5 mg tablet 5 mg PO DAILY Qty: 90 3RF NewFlora 10 billion cell capsule 100 mmu cells PO DAILY Discharge Instructions Instructions: Abdominal Pain, Adult ED Additional Instructions: Ondansetron up to every 8 hours for nasuea. Dicylcomine up to every 8 hours for abdominal cramping. Call your primary care doctor in the morning to schedule an appointment for within the following 48 hours to followup on your visit here. At that visit mention your blood pressure which is high here today, as well as cyst on your kidney that should be followed up on. Return to the emergency department for new or worsening symptoms including fever, new/different/worse abdominal pain, vomiting, blood in your stool or vomit, or if you have any other concerns. Referrals: Liliana Whitaker MD [Primary Care Provider] - [facility] General Mode of arrival: ambulatory. Date/Time Provider Initiated Documentation: 03/04/24 23:57. Limitations to Documentation: no limitations. Information obtained by: patient. HPI Narrative: 73yo M with hx HTN, HLD, CKD, presenting for acute abdominal pain. Symptoms started around 1900 just after dinner; since then has had constant, dull, severe, diffuse, non-radiating abdominal pain. Vomit x 1 prior to arrival, non-bloody non-bilious. No constipation or diarrhea, last BM around noon today, normal. Nothing seems to make pain better or worse. Tried pepto-bismol without effect. Never had similar symptoms in the past. Otherwise in his usual state of health with no fevers, chills, rash, dysuria, hematuria, chest pain, shortness of breath, back pain, or other concerns. Related Data Home Medications ?Medication ?Instructions ?Recorded ?Confirmed rosuvastatin 40 mg tablet 40 mg PO DAILY #90 tabs 06/08/23 03/05/24 amlodipine 5 mg tablet 5 mg PO DAILY #90 tabs 12/09/23 03/05/24 fluoride (sodium) 1.1 % dental 1 applic dental DAILY PRN 12/09/23 03/05/24 cream (SF 5000 Plus) metoprolol succinate 50 mg 50 mg PO DAILY #90 tabs 12/09/23 03/05/24 tablet,extended release 24 hr Lactobacillus acidophilus 10 100 mmu cells PO DAILY 12/31/23 03/05/24 billion cell capsule (NewFlora) dicyclomine 20 mg tablet 20 mg PO TID PRN #10 tabs 03/05/24 ondansetron HCl 4 mg tablet 4 mg PO Q8H PRN #7 tabs 03/05/24 Previous Rx's ?Medication ?Instructions ?Recorded rosuvastatin 40 mg tablet 40 mg PO DAILY #90 tabs 06/08/23 amlodipine 5 mg tablet 5 mg PO DAILY #90 tabs 12/09/23 metoprolol succinate 50 mg 50 mg PO DAILY #90 tabs 12/09/23 tablet,extended release 24 hr dicyclomine 20 mg tablet 20 mg PO TID PRN #10 tabs 03/05/24 ondansetron HCl 4 mg tablet 4 mg PO Q8H PRN #7 tabs 03/05/24 Allergies Allergy/AdvReac Type Severity Reaction Status Date / Time esomeprazole AdvReac Unknown DIARRHEA Unverified 03/05/24 00:08 General Stated Complaint: Abd Prob CANDIDA: 3 Review of Systems Narrative: see HPI Exam Narrative Exam Narrative: General: Alert, non-toxic. Head: Normocephalic, atraumatic Neck: Trachea midline, ?Neck supple. ENT: ?MMM.? Cardiac: ?RRR, no murmurs appreciated Resp: No respiratory distress. CTAB. Abd: ?Soft, non-distended, nontender : ?No suprapubic tenderness. Extremities: ?No deformities.? No peripheral edema. Neurologic: GCS 15. ? Moves all extremities freely against gravity Course Vital Signs Vital signs: Vital Signs Temperature 36.8 C 03/04/24 23:59 Pulse 76 03/04/24 23:59 Respiratory Rate 22 03/04/24 23:59 Blood Pressure 185/91 H 03/04/24 23:59 Pulse Oximetry 98 03/04/24 23:59 Temperature 36.8 C 03/04/24 23:59 Temperature Source Temporal Artery Scan 03/04/24 23:59 Pulse 76 03/04/24 23:59 Respiratory Rate 22 03/04/24 23:59 Blood Pressure 185/91 H 03/04/24 23:59 Blood Pressure Position Sitting 03/04/24 23:59 Pulse Oximetry 98 03/04/24 23:59 Oxygen Delivery Method Room Air 03/04/24 23:59 Oxygen Flow Rate 0 03/04/24 23:59 Pain Level 8 03/05/24 00:03 Medical Decision Making 73yo M with hx HTN, HLD, CKD, presenting for acute abdominal pain. Symptoms started around 1900 just after dinner; since then has had constant, dull, severe, diffuse, non-radiating abdominal pain and vomited once. Hypertensive on arrival, vital signs otherwise reassuring. Abdomen non-tender. EKG NSR, no ST segment or T wave abnormalities to suggest occlusive CA; does have left axis with no priors available for comparison. Will treat symptoms initially with tylenol, toradol, morphine, and zofran while awaiting workup. With pain out of proportion, will get CTA to evaluation for mesenteric ischemia. Symptoms unlikely to be anginal equivalent however with left axis of unknown chronicity will send single troponin. No back pain or sharp/ripping/tearing pain to suggest dissection. Labs reviewed as below, CBC reassuring with no leukocytosis or anemia, CMP with Cr at baseline of 1.6 and no actionable abnormalities, Mg normal, lipase normal, lactate normal, troponin 6 in the setting of 5+ hours of constant symptoms (would not further pursue ACS). CT independently reviewed; no obstruction or free fluid on my view, radiology read below with no acute bowel findings, incidental renal lesion. On reassessment patient reports pain has slightly improved but is still significant. Abdomen remains non-tender. Will try bentyl and smithecone and PO challenged. Patient tolerated fluids well. Reports significant improvement in pain after bentyl. With reassuring workup and improving symptoms, appropriate for outpatient followup with PCP. Discharged with prescriptions for bentyl and zofran. Advised of kidney finding. Discharge instructions and strict return precautions were reviewed with patient who verbalized understanding. All questions were answered and he is in full agreement with the plan. Imaging Data Radiologic Study: Imaging: CT Scan Radiologist's impression: IMPRESSION: 2.9 cm partially enhancing lesion in the superior pole of the right kidney, underlying renal neoplasm can not be excluded. Recommend three-phase nonemergent CT scan with renal protocol or MRI for further evaluation. No evidence of bowel ischemia Quality:SDOH Health Related Social Needs: No Data to Display [facility] All Active Problems (Updated 03/05/24 @ 03:00 by Mackenzie Chand MD) Nausea (Acute) Abdominal cramping (Acute) Obesity, Class II, BMI 35-39.9 (Acute) Trigger finger, right middle finger (Acute) Chronic kidney disease (CKD) stage G3b/A1, moderately decreased glomerular filtration rate (GFR) between 30-44 mL/min/1.73 square meter and albuminuria creatinine ratio less than 30 mg/g (Acute) undergoing evaluation at [facility] [place], felt to be ATN, HTN, NSAIDs as cause. Normal PVR, normal PTH, Vit D. Erectile dysfunction (Acute) Anxiety (Chronic) Severe anxietal response to illness; managed with [facility] clonazepam. Off clonazepam. Hypertension (Chronic) Hyperlipidemia (Acute) ACC/AHA risk is 27.5% 2023 Medical History (Updated 03/05/24 @ 03:00 by Mackenzie Chand MD) Hilar mass (01/06/89) s/p mediastinoscopy, pathology (thymus bx) negative. Panic attack Hiatal hernia Diverticular disease (08/25/17) Depressive disorder improved with hypnosis Family History (Updated 07/20/19 @ 10:51 by Leoncio Douglas) Mother , 94 Leukemia Father , 78 Diabetes Heart disease Hyperlipidemia Maternal Grandfather , 80 Heart disease Paternal Grandfather No problems noted. Maternal Grandmother , 90 No problems noted. Son No problems noted. 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 Pets and animals: Yes Sexually active: No Do you think of yourself as: straight/heterosexual Current gender identity: male What is your relationship status?: How often do you talk on the phone with friends or family?: twice per week How often do you get together with friends or relatives?: twice per week How often do you attend gnosticist or anglican services?: 4 or more times per year Do you belong to any clubs or organized social groups?: no Panel score (0-1 are the most socially isolated patients): 3 What type of physical activity do you participate in: bicycling Duration: 15-30 minutes/day Frequency: 3-4 times per week Lili/Caodaism: Shinto Special lili needs: No Seatbelt use: always Helmet use: Yes Helmet use: sometimes Drive intox or ride w/intox automation driver: No Do you feel safe at home: Yes Do you feel safe in your relationship?: Yes 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
[2024-03-05 00:44] LABS: Lactate 1.5 mmol/L (<or=2.0)
[2024-03-05 00:45] LABS: Abs Immature Grans 0.04 10^3/uL (0.0-0.06); Absolute Basophil Count 0.06 10^3/uL (0.0-0.2); Absolute Eosinophil Count 0.28 10^3/uL (0.0-0.7); Absolute Lymphocyte Count 2.38 10^3/uL (1.2-3.4); Absolute Monocyte Count 0.86 10^3/uL (0.1-0.8); Absolute Neutrophil Count 5.26 10^3/uL (1.2-6.7); Basophils % 0.7 %; Eosinophils % 3.2 %; HCT 42.8 % (40.0-50.0); HGB 14.8 g/dL (13.5-17.5); Immature Grans % 0.5 %; Lymphocytes % 26.8 %; MCH 30.8 pg (27.0-33.0); MCHC 34.6 % (32.0-36.0); MCV 89 fL (80-95); Monocytes % 9.7 %; Neutrophils % 59.1 %; Platelet Count 262 10^3/uL (130-400); RBC 4.81 10^6/uL (4.36-5.78); RDW 12.4 % (11.8-14.1); RDW-SD 40.4 fL; WBC 8.88 10^3/uL (4.4-10.8)
[2024-03-05] MEDS: ACETAMINOPHEN 1,000 MG/100 ML BAG 400 MG IVPB (00:45)
[2024-03-05] MEDS: MORPHine 4 MG/ML SYR IVP (00:46)
[2024-03-05] MEDS: Ondansetron 4 MG/2 ML VIAL IVP (00:46)
[2024-03-05] MEDS: Ketorolac 15 MG/ML VIAL IVP (00:46)
[2024-03-05] MEDS: Normal Saline - Diluent 50 ML VIAL IJ (00:49)
[2024-03-05] MEDS: Omnipaque 350 MG/ML 100 ML BTL IJ (00:50)
[2024-03-05 01:04] LABS: ALT 32 U/L (16-63); AST 24 U/L (15-37); Albumin 3.9 g/dL (3.4-5.0); Alkaline Phosphatase 91 U/L (46-116); Anion Gap 9.1 mmol/L (3-11); BUN 23 mg/dL (7-18); Bilirubin, Total 0.45 mg/dL (0.2-1.0); CO2 30.9 mmol/L (21.0-32.0); CREATININE 1.6 mg/dL (0.70-1.30); Calcium 9.6 mg/dL (8.5-10.1); Chloride 104 mmol/L (98-107); Glucose 167 mg/dL (74-106); Lipase 64 U/L (<78); Magnesium 1.9 mg/dL (1.8-2.4); Sodium 144 mmol/L (136-145); Troponin I 6 ng/L (<or=76)
--- NOTE | 2024-03-05 01:23 | DI.VRAD_ITS ---
PROCEDURE INFORMATION: Exam: CTA Abdomen and Pelvis With Contrast Exam date and time: 03/05/2024 12:32 AM Age: 73 years old Clinical indication: Abdominal pain; Generalized; Patient HX: Severe [id number] abd pain, eval mesenteric ischemia TECHNIQUE: Imaging protocol: Computed tomographic angiography of the abdomen and pelvis with contrast. Exam focused on the arteries. 3D rendering (Not supervised by radiologist): MIP and/or 3D reconstructed images were created by the technologist. Contrast material: OMNIPAQUE 350; Contrast volume: 100 ml; Contrast route: INTRAVENOUS (IV); COMPARISON: US RENAL 01/27/2021 1:48 PM FINDINGS: Lungs: Linear bibasilar opacities most consistent with subsegmental atelectasis. Diaphragm: Moderate-sized hiatal hernia. Aorta: No aortic aneurysm. No aortic dissection. Celiac trunk and mesenteric arteries: No occlusion or significant stenosis. Renal arteries: No occlusion or significant stenosis. Right iliac arteries: No occlusion or significant stenosis. Left iliac arteries: No occlusion or significant stenosis. Other arteries: Patent vessels without evidence of aneurysm, dissection, occlusion or critical stenosis. Liver: The liver is unremarkable. Gallbladder and biliary ducts: No gallstones. Nondistended. No wall thickening. Pancreas: The pancreas is unremarkable. Spleen: No splenomegaly. No lesions. Adrenal glands: The adrenal glands are unremarkable. Kidneys and ureters: 2.9 cm partially enhancing lesion in the superior pole of the right kidney, underlying renal neoplasm can not be excluded. Stomach and bowel: No evidence of bowel obstruction. No pericolonic inflammatory stranding. Colonic diverticulosis without evidence of diverticulitis. Moderate stool throughout the colon and rectum. Appendix: Normal appendix. Intraperitoneal space: Unremarkable. No free air. No significant fluid collection. Lymph nodes: No mesentery adenopathy. No edema. Urinary bladder: No focal wall thickening of the urinary bladder. Reproductive: Unremarkable as visualized. Bones/joints: No acute osseous abnormality. Soft tissues: Bilateral fat containing inguinal hernias. Soft tissues are unremarkable as visualized. IMPRESSION: 2.9 cm partially enhancing lesion in the superior pole of the right kidney, underlying renal neoplasm can not be excluded. Recommend three-phase nonemergent CT scan with renal protocol or MRI for further evaluation. No evidence of bowel ischemia Dictated and Authenticated by: Yamile Silva MD. Ordering:SYDNEE Mann MD
[2024-03-05] MEDS: Simethicone 80 MG CHEW 160 MG PO (01:36)
[2024-03-05] MEDS: Dicyclomine 20 MG TAB PO (01:37)
--- NOTE | 2024-03-05 02:44 | NUR.NOTE ---
Pt stated he is feeling a little better, he is able to keep fluids down, however still feels nausea when he drinks fluids, BEATRIZ
[2024-03-05] MEDS: Dicyclomine 20 MG TAB 40 MG PO (03:16)
--- NOTE | 2024-03-05 23:45 | RT.EKG_ITS ---
APPROVED REPORT Exam: Resting ECG Reason for Exam: abd pain Patient Location: E HR:75 bpm ECG Measurements Heart Rate 75 AXIS AR 162 P 69 QRSd 106 QRS -31 QT 415 T 13 QTc 465 Conclusion Sinus rhythm...normal P axis, V-rate 60- 99 Left axis deviation...QRS axis (-30,-90) appropriate intervals no ST segment or T wave abnormalities to suggest occlusive RI
== END 2024-03-05 03:16 | disposition home or self-care (01) ==
PROVIDERS: Emergency Provider Student in an Organized Health Care Education/Training Program; PCP Family Medicine
DX: R10.9 Unspecified abdominal pain (principal); R11.0 Nausea; I10 Essential (primary) hypertension; Z86.79 Personal history of other diseases of the circulatory system
CPT/HCPCS: 36415; 80053; 83690; 93005; 96365; 96375; 99285; 74174; 83605; 83735; 84484; 85025; 93010; 99284; J0131; J1885; J2270; J2405; J3490

== ENCOUNTER 2024-03-22 10:52 | Outpatient (CLI) | payer MEDICARE, SELFPAY ==
--- NOTE | 2024-03-22 08:45 | DI.MRI_ITS ---
Exam(s) MR ABDOMEN WO/W EXAM: MR ABDOMEN WO/W CLINICAL HISTORY: right kidney mass on CTA N28.89 DISORDER KIDNEY AND URETER TECHNIQUE: Multiplanar multisequence MRI of the Abdomen was performed. CONTRAST MATERIAL: IV Contrast: 20 mL of Dotarem contrast administered. COMPARISON: CT CT ABDOMEN PELVIS CTA from 03/05/2024 FINDINGS: Exam is limited by motion. Lung bases: Unremarkable. Liver: Unremarkable. Pancreas: Unremarkable. Gallbladder and Bile Ducts: Unremarkable. Adrenals: Unremarkable. Kidneys: 3.5 centimeter heterogeneous mass is again demonstrated at the upper pole of the left kidney . Show significant postcontrast enhancement suspicious for carcinoma. Two benign-appearing simple c ysts are noted at the upper pole of the left kidney. Spleen: Unremarkable. Aorta: Unremarkable. Soft Tissues: Unremarkable. Bone: A hemangioma is noted in T11. Lymph Nodes: Unremarkable. Stomach and bowel: Unremarkable. Peritoneal cavity: Unremarkable. No evidence of ascites. IMPRESSION: Limited exam due to motion. 3.5 centimeter mass on the at the upper pole of the right kidney suspici ous for renal cell carcinoma. There is no evidence of metastatic disease or adenopathy. DATA REPOSITORY:
[2024-03-22] MEDS: Gadoterate meglumine 20 ML VIAL IVP (14:03)
[2024-03-22] MEDS: Normal Saline - Diluent 50 ML VIAL 25 ML IJ (14:04)
== END 2024-03-22 11:12 ==
LOC: DI 10:52
PROVIDERS: PCP Family Medicine; Visit Provider Family Medicine
DX: N28.89 Other specified disorders of kidney and ureter (principal)
CPT/HCPCS: 74183

== ENCOUNTER 2024-06-29 19:55 | Emergency (ER) | payer MEDICARE, SELFPAY ==
[2024-06-29 19:59] VITALS: BP 154/86; PULSE 65; RESP 20; TEMP 36.3; O2SAT 94
--- NOTE | 2024-06-30 00:16 | ED.GENADUL_ITS ---
Discharge Plan Disposition Patient Disposition: Home Discharge Details Clinical Impression: Skin lesion Primary Care Provider: Liliana Whitaker ED Provider: Anya Orellana Home Meds and New Rx's Prescriptions: Continued fluoride (sodium) [SF 5000 Plus] 1.1 % cream 1 applic dental DAILY PRN Patient Comments: USE DIRECTED mirtazapine 15 mg tablet 15 mg PO QHS Qty: 30 2RF clonazepam 0.5 mg tablet 0.5 mg PO DAILY PRN (Reason: anxiety) Qty: 20 0RF rosuvastatin 40 mg tablet 40 mg PO DAILY Qty: 90 3RF amlodipine 5 mg tablet 5 mg PO DAILY Qty: 90 3RF metoprolol succinate 50 mg tablet extended release 24 hr 50 mg PO DAILY Qty: 90 3RF NewFlora 10 billion cell capsule 100 mmu cells PO DAILY Discharge Instructions Additional Instructions: You have a skin lesion that is likely been present for a long period of time the differentials include actinic keratoses or squamous cell carcinoma I am placing a referral to our ENT doctor who might be willing to perform a biopsy, I will also place a referral to [facility] dermatology In the interim please be sure to wear hat You will be contacted to schedule the appointment, please call on Tuesday if you do not hear by the end of day Referrals: Liliana Whitaker MD [Primary Care Provider] - Bhavik Warren MD [ [facility]] - 1 day Discharge Data Discharge Date/Time-TO BE ENTERED AT DEPARTURE: 06/29/24 21:27 HPI General Date/Time Provider Initiated Documentation: 06/29/24 20:04 . HPI Narrative: The patient is a 74-year-old gentleman with an asymptomatic rash on the parietal scalp, noticed at his [facility] appointment today. No headaches or additional concerns. Post procedure at [facility]. Related Data Home Medications ?Medication ?Instructions ?Recorded ?Confirmed fluoride (sodium) 1.1 % dental 1 applic dental DAILY PRN 12/09/23 06/29/24 cream (SF 5000 Plus) Lactobacillus acidophilus 10 100 mmu cells PO DAILY 12/31/23 06/29/24 billion cell capsule (NewFlora) clonazepam 0.5 mg tablet 0.5 mg PO DAILY PRN anxiety #20 03/16/24 06/29/24 tabs mirtazapine 15 mg tablet 15 mg PO QHS #30 tabs 03/16/24 06/29/24 amlodipine 5 mg tablet 5 mg PO DAILY #90 tabs 03/26/24 06/29/24 metoprolol succinate 50 mg 50 mg PO DAILY #90 tabs 03/26/24 06/29/24 tablet,extended release 24 hr rosuvastatin 40 mg tablet 40 mg PO DAILY #90 tabs 03/26/24 06/29/24 Previous Rx's ?Medication ?Instructions ?Recorded clonazepam 0.5 mg tablet 0.5 mg PO DAILY PRN anxiety #20 03/16/24 tabs mirtazapine 15 mg tablet 15 mg PO QHS #30 tabs 03/16/24 amlodipine 5 mg tablet 5 mg PO DAILY #90 tabs 03/26/24 metoprolol succinate 50 mg 50 mg PO DAILY #90 tabs 03/26/24 tablet,extended release 24 hr rosuvastatin 40 mg tablet 40 mg PO DAILY #90 tabs 03/26/24 Allergies Allergy/AdvReac Type Severity Reaction Status Date / Time esomeprazole AdvReac Unknown DIARRHEA Unverified 06/29/24 20:03 General Stated Complaint: RashLesion CANDIDA: 4 Exam Narrative Exam Narrative: General Appearance: Normal. Vital signs: Within normal limits. HEENT: Plaque-like lesion with excoriations, 2x1 inches, over the right parietal scalp. Respiratory: Within normal limits. Cardiovascular: Gastrointestinal: Genitourinary: Lymphatic: Back, Musculoskeletal: Extremities: Skin: Warm and dry, no rash. Neurological: Normal. Psychiatric: Other observations: Course Vital Signs Vital signs: Vital Signs Temperature 36.3 C L 06/29/24 19:59 Pulse 65 06/29/24 19:59 Respiratory Rate 06/29/24 19:59 Blood Pressure 154/86 H 06/29/24 19:59 Pulse Oximetry 94 06/29/24 19:59 Temperature 36.3 C L 06/29/24 19:59 Temperature Source Oral 06/29/24 19:59 Pulse 65 06/29/24 19:59 Respiratory Rate 06/29/24 19:59 Blood Pressure 154/86 H 06/29/24 19:59 Blood Pressure Position Sitting 06/29/24 19:59 Pulse Oximetry 94 06/29/24 19:59 Oxygen Delivery Method Room Air 06/29/24 19:59 Oxygen Flow Rate 0 06/29/24 19:59 Medical Decision Making Initial Assessment: 74-year-old gentleman with a rash or lesion on the parietal region of his scalp, asymptomatic, noticed today. Denies headaches or additional concerns. Post procedure at [facility]. Plaque-like lesion with excoriations, approximately 2 inches x 1 inch, on the right side of the parietal region. Differential Diagnosis: - Squamous cell carcinoma: Largest concern. - Keratoacanthoma: Considered. - Seborrheic dermatosis: Lower suspicion. ED Course: - Referral to ENT for biopsy. - Referral to dermatology for biopsy. Final Assessment: Lesion on the parietal scalp with differential diagnosis including squamous cell carcinoma, keratoacanthoma, and lower suspicion for s eborrheic dermatosis. Biopsy recommended. Clinical Impression: - Lesion on the parietal scalp. Disposition: - Follow-Up: Referral to ENT and dermatology for biopsy. Patient Education: Encouraged to wear a hat and follow up for biopsy DORIS. Reviewed return precautions, patient understood. MDM Components Evaluation: - Number of Differential Diagnoses or Management Options: Squamous cell carcinoma, keratoacanthoma, seborrheic dermatosis. - Amount and Complexity of Data Reviewed: Referral to ENT and dermatology. - Risk of Complication and Morbidity or Mortality: Potential risk if lesion is squamous cell carcinoma. Quality:SDOH Health Related Social Needs: No Data to Display PFSH All Active Problems (Updated 06/29/24 @ 21:20 by ARGELIA Marquez) Skin lesion (Acute) Right kidney mass (Acute 02/2024) seen on CT for gastroenteritis workup; 3.5cm on MRI Obesity, Class II, BMI 35-39.9 (Acute) Trigger finger, right middle finger (Acute) Chronic kidney disease (CKD) stage G3b/A1, moderately decreased glomerular filtration rate (GFR) between 30-44 mL/min/1.73 square meter and albuminuria creatinine ratio less than 30 mg/g (Acute) [place] [facility] [place] felt to be [place], HTN, NSAIDs as cause. Normal PVR, normal PTH, Vit D. Erectile dysfunction (Acute) Anxiety (Chronic) Severe anxietal response to illness; managed with [facility] clonazepam. Off clonazepam. Hypertension (Chronic) Hyperlipidemia (Acute) ACC/AHA risk is 27.5% 2023 Medical History (Updated 06/29/24 @ 21:20 by ARGELIA Marquez) Hilar mass (01/06/89) s/p mediastinoscopy, pathology (thymus bx) negative. Panic attack Hiatal hernia Diverticular disease (08/25/17) Depressive disorder improved with hypnosis Family History (Updated 07/20/19 @ 10:51 by Leoncio Douglas) Mother , 94 Leukemia Father , 78 Diabetes Heart disease Hyperlipidemia Maternal Grandfather , 80 Heart disease Paternal Grandfather No problems noted. Maternal Grandmother , 90 No problems noted. Son No problems noted. 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 Pets and animals: Yes Sexually active: No Do you think of yourself as: straight/heterosexual Current gender identity: male What is your relationship status?: How often do you talk on the phone with friends or family?: twice per week How often do you get together with friends or relatives?: twice per week How often do you attend advent or lutheran services?: 4 or more times per year Do you belong to any clubs or organized social groups?: no Panel score (0-1 are the most socially isolated patients): 3 What type of physical activity do you participate in: bicycling Duration: 15-30 minutes/day Frequency: 3-4 times per week Lili/Lutheran: Congregational Special lili needs: No Seatbelt use: always Helmet use: Yes Helmet use: sometimes Drive intox or ride w/intox hyster driver: No Do you feel safe at home: Yes Do you feel safe in your relationship?: Yes 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
== END 2024-06-29 21:27 | disposition home or self-care (01) ==
PROVIDERS: Emergency Provider Physician Assistant; PCP Family Medicine
DX: L98.9 Disorder of the skin and subcutaneous tissue, unspecified (principal); I12.9 Hypertensive chronic kidney disease with stage 1 through stage 4 chronic kidney disease, or unspecified chronic kidney disease; N18.32 Chronic kidney disease, stage 3b; E78.5 Hyperlipidemia, unspecified
CPT/HCPCS: 99283